=== PATIENT | female | born 1955 | race Two or more races ===

== ENCOUNTER 2019-11-14 14:28 | Emergency (ER) | payer MEDICAID ==
[~2019-11-14] VITALS: Ht 160 cm; Wt 51.3 kg
[2019-11-14] MEDS ORDERED: ACETAMINOPHEN/CODEINE#3 (300/30mg) TAB PO ONE (19:15)
[2019-11-14] MEDS ORDERED: DexAMETHasone SOD PHOS 10MG/1ML VIAL INJ IM ONE (19:15)
[2019-11-14 20:22] VITALS: BP 167/87
== END 2019-11-14 20:22 | disposition home or self-care (01) ==
LOC: ER 14:28
DX: J06.9 Acute upper respiratory infection, unspecified (principal); I10 Essential (primary) hypertension; E78.5 Hyperlipidemia, unspecified; Z88.0 Allergy status to penicillin; Z88.6 Allergy status to analgesic agent
CPT/HCPCS: 96372; 99283; J1100

== ENCOUNTER 2020-04-14 21:46 | Emergency (ER) | payer SELFPAY ==
[~2020-04-14] VITALS: Ht 152.4 cm; Wt 63.5 kg
[2020-04-15 00:06] LABS: Urine Bacteria FEW /hpf (None Seen); Urine Blood Negative /uL (Negative); Urine Specific Gravity 1.009 (1.001-1.035); Urine WBC 2 /hpf (0 - 5)
[2020-04-15 00:21] LABS: Basophils # (auto) 0.1 10 ^3/uL (0-0.2); Eosinophils # (auto) 0.1 10 ^3/uL (0-0.8); Hemoglobin 11.1 g/dL (12.2-16.2); Lymphocytes # (auto) 2.1 10 ^3/uL (0.4-5.4); Monocytes # (auto) 0.4 10 ^3/uL (0-1.3)
[2020-04-15 00:23] LABS: Basophils % (auto) 0.8 % (0.0-2.0); Hematocrit 35.7 % (36.0-46.0); Lymphocytes % (auto) 31.8 % (10.0-50.0); Mean Corpuscular Hemoglobin 20.7 pg (28.0-32.0); Mean Corpuscular Volume 66.8 fL (80.0-100.0); Monocytes % (auto) 5.5 % (0.0-12.0); Neutrophils # (auto) 3.9 10 ^3/uL (1.6-8.6); Neutrophils % (auto) 59.9 % (37.0-80.0); Nucleated Red Blood Cells % 0.1 %; Platelet Count (auto) 314 10^3/uL (140-450); Red Blood Cells 5.34 10^6/uL (4.0-5.20); Red Cell Distribution Width 19.1 % (11.8-14.3); White Blood Cell 6.6 10^3/uL (4.4-10.8)
[2020-04-15 00:38] LABS: Alanine Aminotransferase 18 U/L (13-56); Albumin 3.6 g/dL (3.4-5.0); Amylase 67 U/L (25-115); Anion Gap 7 (5-15); Aspartate Aminotransferase 14 U/L (15-37); BUN/Creatinine Ratio 17.2; Blood Urea Nitrogen 10 mg/dL (7-18); Calcium 8.3 mg/dL (8.5-10.1); Carbon Dioxide 25 mmol/L (21-32); Chloride 108 mmol/L (98-107); GFR African American 134 mL/min; GFR Non-African American 111 mL/min; Glucose 117 mg/dL (74-106); Lipase 156 U/L (73-393); Magnesium 2.4 mg/dL (1.6-2.6); Potassium 3.6 mmol/L (3.5-5.1); Sodium 140 mmol/L (136-145)
[2020-04-15 00:45] LABS: Alkaline Phosphatase 90 U/L (45-117); Bilirubin, Total 0.4 mg/dL (0.2-1.0); Total Protein 7.7 g/dL (6.4-8.2)
[2020-04-15] MEDS ORDERED: FAMOTIDINE 20 MG TAB PO ONE (01:00)
[2020-04-15] MEDS ORDERED: ONDANSETRON ODT 4 MG TAB PO ONE (01:00)
[2020-04-15 01:10] VITALS: BP 152/89
== END 2020-04-15 02:31 | disposition home or self-care (01) ==
LOC: ER 21:47
DX: K29.70 Gastritis, unspecified, without bleeding (principal); N20.0 Calculus of kidney; N83.8 Other noninflammatory disorders of ovary, fallopian tube and broad ligament; D64.9 Anemia, unspecified; K42.9 Umbilical hernia without obstruction or gangrene; R03.0 Elevated blood-pressure reading, without diagnosis of hypertension; K57.30 Diverticulosis of large intestine without perforation or abscess without bleeding; I70.90 Unspecified atherosclerosis; M47.9 Spondylosis, unspecified; F41.9 Anxiety disorder, unspecified
CPT/HCPCS: 36415; 71045; 74176; 80053; 81001; 82150; 83690; 83735; 84484; 85025; 93005; Q0162

== ENCOUNTER 2021-06-27 08:07 | Emergency (ER) | payer MEDICAID ==
[~2021-06-27] VITALS: Ht 134.6 cm; Wt 47.8 kg
[2021-06-27 08:27] VITALS: BP 151/75
[2021-06-27 08:50] LABS: Eosinophils # (auto) 0.1 10 ^3/uL (0-0.8); Eosinophils % (auto) 1.8 % (0.0-7.0); Monocytes # (auto) 0.3 10 ^3/uL (0-1.3)
[2021-06-27 08:52] LABS: Basophils # (auto) 0.1 10 ^3/uL (0-0.2); Basophils % (auto) 0.9 % (0.0-2.0); Hematocrit 34.4 % (36.0-46.0); Hemoglobin 10.7 g/dL (12.2-16.2); Lymphocytes # (auto) 1.9 10 ^3/uL (0.4-5.4); Lymphocytes % (auto) 28.4 % (10.0-50.0); Mean Corpuscular Hemoglobin 20.5 pg (28.0-32.0); Mean Corpuscular Hgb Conc. 31.1 g/dL (32.0-36.0); Mean Corpuscular Volume 65.8 fL (80.0-100.0); Monocytes % (auto) 4.6 % (0.0-12.0); Neutrophils # (auto) 4.4 10 ^3/uL (1.6-8.6); Neutrophils % (auto) 64.3 % (37.0-80.0); Nucleated Red Blood Cells % 0.1 %; Red Blood Cells 5.23 10^6/uL (4.0-5.20); White Blood Cell 6.8 10^3/uL (4.4-10.8)
[2021-06-27 08:55] LABS: Red Cell Distribution Width 20.8 % (11.8-14.3)
[2021-06-27 09:08] LABS: Albumin 3.5 g/dL (3.4-5.0); BUN/Creatinine Ratio 23.1; Calcium 9.1 mg/dL (8.5-10.1); Potassium 3.9 mmol/L (3.5-5.1)
[2021-06-27 09:11] LABS: Bilirubin, Total 0.3 mg/dL (0.2-1.0); Total Protein 7.5 g/dL (6.4-8.2)
== END 2021-06-27 09:35 | disposition home or self-care (01) ==
LOC: ER 08:07
DX: M79.605 Pain in left leg (principal); M79.604 Pain in right leg; D64.9 Anemia, unspecified; F41.9 Anxiety disorder, unspecified; I10 Essential (primary) hypertension; E78.5 Hyperlipidemia, unspecified; Z88.0 Allergy status to penicillin; Z88.5 Allergy status to narcotic agent
CPT/HCPCS: 36415; 80053; 85025

== ENCOUNTER 2022-04-07 08:37 | Emergency (ER) | payer MEDICARE, MEDICAID ==
[~2022-04-07] VITALS: Ht 149.9 cm; Wt 48.1 kg
[2022-04-07] MEDS ORDERED: ACETAMINOPHEN 325 MG TAB PO ONE (09:45)
[2022-04-07 09:55] LABS: Basophils # (auto) 0 10 ^3/uL (0-0.2); Eosinophils # (auto) 0.2 10 ^3/uL (0-0.8); Lymphocytes # (auto) 0.4 10 ^3/uL (0.4-5.4); Neutrophils # (auto) 6.3 10 ^3/uL (1.6-8.6)
[2022-04-07 09:58] VITALS: BP 159/80
[2022-04-07 09:58] LABS: Basophils % (auto) 0.3 % (0.0-2.0); Eosinophils % (auto) 2.5 % (0.0-7.0); Hematocrit 31.2 % (36.0-46.0); Hemoglobin 9.3 g/dL (12.2-16.2); Lymphocytes % (auto) 6.2 % (10.0-50.0); Mean Corpuscular Hemoglobin 18.3 pg (28.0-32.0); Mean Corpuscular Hgb Conc. 29.9 g/dL (32.0-36.0); Mean Corpuscular Volume 61.2 fL (80.0-100.0); Monocytes # (auto) 0.3 10 ^3/uL (0-1.3); Monocytes % (auto) 4.2 % (0.0-12.0); Neutrophils % (auto) 86.8 % (37.0-80.0); Red Blood Cells 5.09 10^6/uL (4.0-5.20); Red Cell Distribution Width 20.3 % (11.8-14.3); White Blood Cell 7.2 10^3/uL (4.4-10.8)
[2022-04-07 10:17] LABS: Urine Bacteria NONE SEEN /hpf (None Seen); Urine Blood Negative /uL (Negative); Urine Specific Gravity 1.016 (1.001-1.035); Urine WBC <1 /hpf (0 - 5)
[2022-04-07 10:20] LABS: Albumin 3.7 g/dL (3.4-5.0); Calcium 8.4 mg/dL (8.5-10.1); Potassium 3.3 mmol/L (3.5-5.1)
[2022-04-07 10:23] LABS: BUN/Creatinine Ratio 21.4; Bilirubin, Total 0.4 mg/dL (0.2-1.0); Total Protein 7.6 g/dL (6.4-8.2)
[2022-04-07] MEDS ORDERED: FER325T PO (10:41)
[2022-04-07] MEDS ORDERED: MELO7.5T9 PO (10:41)
[2022-04-07] MEDS ORDERED: AZIT250T8 PO (10:41)
== END 2022-04-07 10:55 | disposition home or self-care (01) ==
LOC: ER 08:37
DX: U07.1 COVID-19 (principal); J03.90 Acute tonsillitis, unspecified; D64.9 Anemia, unspecified; M17.11 Unilateral primary osteoarthritis, right knee; I10 Essential (primary) hypertension; E78.5 Hyperlipidemia, unspecified; Z79.2 Long term (current) use of antibiotics; Z79.899 Other long term (current) drug therapy; Z88.0 Allergy status to penicillin; Z88.5 Allergy status to narcotic agent
CPT/HCPCS: 36415; 71046; 73562; 80053; 81001; 84484; 85025; 93005

== ENCOUNTER 2025-06-18 17:20 | Inpatient (IN) | payer MEDICARE, MEDICAID ==
[~2025-06-18] VITALS: Ht 152.4 cm; Wt 49.5 kg
[~2025-06-18 17:20] MED LIST: AZIT-185 PO; FER325T PO; MELO7.5T9 PO
--- NOTE | 2025-06-18 17:45 | ED.PDOC ---
History of Present Illness HPI Comments HPI: 69F BIBA w/ the c/c of generalized weakness. EMS reports on being called by the pt's family due from the pt having to have weakness for 1 week. Pt was piked up at home and informed EMS that she went to her PCP for which she had her blood drawn and they called her family stating that the pt's Hemoglobin was at 4.5. Denies Any other Symptoms. Patient states having known history of anemia. Past Medical history: Anxiety, Arthritis, Anemia, High Lipids, HTN, Gastritis Past Surgical history: Denies Any Medications: Blood pressure medicine Social History: Denies smoking, ETOH, and drug use. Allergies: Codeine, Penicillins HPI: Poor Historian. REVIEW OF SYSTEMS: CONSTITUTIONAL: Denies acute: fever, diaphoresis, chills, HEAD: Denies acute: headache, photophobia Eyes: Denies acute: Double vision, vision loss, eye pain, eye discharge. EARS: Denies acute: tinnitus, hearing loss, ear discharge, ear pain, THROAT: Denies acute: sore throat, swelling, difficulty swallowing , pain with swallowing, change in voice. NECK: Denies acute: neck pain, neck swelling, stiff neck. HEART: Denies acute : chest pain, palpitations, LUNGS: Denies acute: SOB, wheezing, cough, hemoptysis ABDOMEN: Denies acute: abdominal pain, Nausea, Vomiting, diarrhea, melena , hematemesis, hematochezia SKIN: Denies acute: rash, redness, lesions, itchiness. EXTREMITIES: Denies acute: calf pain, numbness, tingling, weakness, denies pain in extremity. Denies acute: Low back pain. Neuro: Denies acute: focal neurological deficit, motor or sensory focal neurological d eficit, tremors, seizure like activity, confusion, change in mental status, loss of bowel or bladder function, cauda equina like symptoms. : Denies acute: dysuria, hematuria, flank pain, increase in urinary frequency. PSYCH: Denies acute: hallucination, suicidal ideation, homicidal ideation. FEMALE: Denies acute: abnormal vaginal bleeding, foul odor, unusual discharge. PHYSICAL EXAM: General: ---mild-----acute distress, awake and alert. Head: normocephalic, atraumatic. Neck: supple, trachea is midline, no swelling. Throat: Normal phonation. Eyes:, no erythema, no purulent discharge, no proptosis, no icterus. Heart: regular rate, regular rhythm, no significant murmur appreciated. Lungs: no apparent respiratory distress, Able to speak in full sentences. No wheezing, no rhonchi, no crackles. No stridors Clear to auscultation bilaterally. Abdomen: non tender to palpation, non distended, soft, no guarding, no rebound, + bowel sounds. Neuro: Awake, Alert, oriented to name, self, situation, follows commands GCS=15. Speech is normal. Skin: no petechia, no purpura, no cyanosis, non-pale, not jaundice. Lower extremities: --trace bilateral - Pitting edema no deformity, no focal swelling, no calf TTP. Makes eye contact. moves all four extremities. Face: no apparent facial droop. ED COURSE: DISCLAIMER: This medical document was created using an electronic medical record system with voice recognition software and computerized dictation system. Although this document has been carefully reviewed, there might still be some phonetic and t ypographical errors. Occasional wrong-word or "sound-alike" substitutions may have occurred due to the inherent limitations of voice recognition software. These areas are purely typographical due to imperfections of the software programs and do not reflect any compromise in the patient's medical care. Please read the chart carefully and recognize, using context, where these substitutions have occurred. Chief Complaint: General Weakness Time Seen by MD: 17:45 Primary Care Provider: JUAN A Reviewed Notes: Nurses Notes, Medications, Allergies Allergies: Coded Allergies: Codeine (Verified Allergy, Unknown, 08/31/15) Penicillins (Verified Allergy, Unknown, 08/31/15) Home Meds Active Scripts Ferrous Sulfate (FERROUS SULFATE) 325 Mg Tb, 1 TAB PO DAILY, #30 TAB 0 Refills Prov:SAMUEL CAI 04/07/22 Meloxicam (Mobic) 7.5 Mg Tab, 7.5 MG PO BID, #30 TAB Prov:SAMUEL CAI 04/07/22 Azithromycin (ZITHROMAX TABLET) 250 Mg Tb, 250 MG PO DAILY, #6 TAB Prov:SAMUEL CAI 04/07/22 Information Source: Patient Mode of Arrival: EMS Severity: Moderate Past Medical History PAST MEDICAL HISTORY: Anemia, Anxiety, Arthritis, High Lipids, HTN Past Medical History (Other): Gastritis Surgical History: Denies all surgeries PLANT CULTURE MANAGER History: No Pertinent PLANT CULTURE MANAGER History Family History Family History: Reviewed,noncontributory to illness, Unknown, Family hx of HTN Social History Smoker: Non-Smoker Alcohol: Denies ETOH Use Drugs: Denies Drug Use Lives In: Home Was a procedure done? Was a procedure done?: No Differential Dx Considerations may include: Includes but not limited to thyroid disease, encephalopathy, electrolyte abnormality, sepsis, infection, intracranial pathology, drug adverse effects, arrhythmia, kidney insufficiency, ACS, CVA, malignancy, anemia X-Ray, Labs, Meds, VS Vital Signs Date Time Temp Pulse Resp B/P (MAP) Pulse Ox O2 Delivery O2 Flow Rate FiO2 06/18/25 19:00 98.4 90 22 163/67 (99) 98 98.4 06/18/25 17:30 98.8 84 18 174/66 98 98.8 06/18/25 17:25 88 Lab Test 06/18/25 19:58 06/18/25 19:28 06/18/25 19:20 06/18/25 18:30 Range/Units Urine Color Colorless Yellow Urine Clarity Clear Clear Urine pH 6.5 5.0-9.0 Urine Specific [place] 1.006 1.001-1.035 Urine Protein Negative Negative Urine Ketones Negative Negative Urine Blood Negative Negative /uL Urine Nitrite Negative Negative Urine Bilirubin Negative Negative Urine Urobilinogen Normal Negative mg/dL Urine Leukocyte Esterase Negative Negative /uL Urine RBC None seen 0 - 4 /hpf Urine Microscopic WBC 1 0-5 /HPF Urine Squamous Epithelial Cells None seen <5 /hpf Urine Bacteria None seen None Seen /hpf Urine Glucose Normal Normal mg/dL Troponin I High Sensitivity 7 3 L </=34 ng/L Haptoglobin Pending White Blood Count 7.4 4.4-10.8 10^3/uL Red Blood Count 3.43 L 4.0-5.20 10^6/uL Hemoglobin 4.4 *L 12.2-16.2 g/dL Hematocrit 17.1 L 36.0-46.0 % Mean Corpuscular Volume 49.8 L 80.0-100.0 fL Mean Corpuscular Hemoglobin 12.7 L 28.0-32.0 pg Mean Corpuscular Hemoglobin Concent 25.6 L 32.0-36.0 g/dL Red Cell Distribution Width 26.8 H 11.8-14.3 % Platelet Count 660 H 140-450 10^3/uL Mean Platelet Volume 8.3 6.9-10.8 fL Neutrophils (%) (Auto) 62.2 37.0-80.0 % Lymphocytes (%) (Auto) 29.5 10.0-50.0 % Monocytes (%) (Auto) 5.1 0.0-12.0 % Eosinophils (%) (Auto) 1.7 0.0-7.0 % Basophils (%) (Auto) 1.5 0.0-2.0 % Neutrophils # (Auto) 4.6 1.6-8.6 10 ^3/uL Lymphocytes # (Auto) 2.2 0.4-5.4 10 ^3/uL Monocytes # (Auto) 0.4 0-1.3 10 ^3/uL Eosinophils # (Auto) 0.1 0-0.8 10 ^3/uL Basophils # (Auto) 0.1 0-0.2 10 ^3/uL Nucleated Red Blood Cells 0.5 % Platelet Estimate Increa Large Platelets Few Hypochromasia (manual) Marked Poikilocytosis (manual) Moderate Anisocytosis (manual) Moderate Microcytosis Marked Ovalocytes Few Schistocytes Few Reticulocyte Count (auto) 1.82 H 0.5-1.5 % Prothrombin Time 10.1 9.3-11.8 sec Prothrombin Time INR 0.95 0.9-1.15 Activated Partial Thromboplast Time 22.5 L 24.5-34.5 SEC Sodium Level 141 136-145 mmol/L Potassium Level 3.5 3.5-5.1 mmol/L Chloride Level 108 H 98-107 mmol/L Carbon Dioxide Level 23 20-31 mmol/L Anion Gap 10 5-15 Blood Urea Nitrogen 8 L 9-23 mg/dL Creatinine 0.57 0.550-1.02 mg/dL Glomerular Filtration Rate Calc 98 >90 mL/min BUN/Creatinine Ratio 14.0 10.0-20.0 Serum Glucose 108 H 74-106 mg/dL Lactic Acid Level 0.9 0.4-2.0 mmol/L Calcium Level 8.8 8.7-10.4 mg/dL Iron Level 9 L 50-170 ug/dL Total Iron Binding Capacity 462 H 250-425 ug/dL Percent Iron Saturation 1.9 L 15-50 % Ferritin 1.4 L 10-291 ng/mL Total Bilirubin 0.5 0.2-1.0 mg/dL Aspartate Amino Transferase (AST) 14 13-40 U/L Alanine Aminotransferase (ALT) 10 7-40 U/L Alkaline Phosphatase 69 46-116 U/L Lactate Dehydrogenase 218 120-246 U/L B-Type Natriuretic Peptide 173.09 0-100 pg/mL Total Protein 7.2 5.7-8.2 g/dL Albumin 4.6 3.2-4.8 g/dL [place] [id number] Ph: [phone] DIAGNOSTIC IMAGING Diagnostic Imaging Report : [id number] Signed PATIENT: LIZZ OLMOSCCT: [id number] UNIT: [id number] 6 : 1955 LOC: ER ROOM / BED: / AGE / SEX: 69 / F ADM STATUS: REG ER SERVICE 37 ORDERING PHYSICIAN: PRINCE SALES DO PROCEDURE(s): CXRP - CHEST PORTABLE REASON: weak ORDER NUMBER(s): [id number], ACCESSION NUMBER(s): [id number] EXAMINATION: XY CHEST PORTABLE CLINICAL HISTORY: weak COMPARISON: CHEST TWO VIEWS ROUTINE on DOS: 04/07/22, CXR2 on DOS: 04/07/22 FINDINGS: Cardiac silhouette is enlarged. Central vascular redistribution and interstitial prominence. No lobar consolidation is identified. No definite pleural effusion or pneumothorax. Chronic appearing eventration of the right hemidiaphragm. IMPRESSION: Congestive type pattern with interstitial edema/pulmonary vascular congestion. Correlate to exclude atypical infection. ATED BY: CHRIS BASS MD DICTATED DATE/TIME: 06/18/251834 SIGNED BY: CHRIS BASS MD SIGNED DATE/TIME: 06/18/251834 Time of 1ST Reevaluation: 18:15 Reevaluation 1ST: Unchanged Patient Education/Counseling: Diagnosis, Treatment Family Education/Counseling: No Family Present Comments MDM: patient presented with the above HPI.---generalized weakness---workup was initiated. patient was found with the above mentioned diagnosis. the following medications were ordered: please refer to order lists of meds and tests obtained by myself Dr. Sales. Patient ED course and VS have been stabilized. Patient has been reassessed in the ED and remained in a stable condition. Pertinent incidental findings were discussed with the patient and/or family. Patient/family voices understanding and is agreeable with plan. Patient has been observed in the ED adequate length of time to insure improvement/stability. Escalation of care considered: Consideration of escalation to observation or admission Patient was consented for blood transfusion. Patient reported diarrhea. Stool studies were ordered. Chest x-ray suggested possible pulmonary vascular congestion. Lasix was ordered. Patient was ADMITTED to the medicine team for further evaluation and treatment of their presentation. . All the reports of any imaging studies that were ordered by myself were reviewed by myself. SEPSIS Sepsis Screen Date sepsis recognized/suspect: Jun 18, 2025 Time Sepsis recognized/suspect: 1724 Recent Procedure: No On Antibiotic Therapy: No Respiratory Rate >20: No Heart Rate >90: No Temp<36 C (96.8 F) or >38.3 C: No SBP <90 or MAP <65 mmHG: No New Acute Mental Status Change: No Is the patient on CPAP, BIPAP,: No Physician Orders Electrocardigram (06/18/25 17:33) Management Manager (06/18/25 ) Chest Portable (06/18/25 17:38) Type And Screen (06/18/25 17:38) Vital Signs Date Time Temp Pulse Resp B/P (MAP) Pulse Ox O2 Delivery O2 Flow Rate FiO2 06/18/25 19:00 98.4 90 22 163/67 (99) 98 98.4 06/18/25 17:30 98.8 84 18 174/66 98 98.8 06/18/25 17:25 88 Laboratory Tests Test 06/18/25 18:30 Lactic Acid Level 0.9 mmol/L (0.4-2.0) White Blood Count 7.4 10^3/uL (4.4-10.8) Departure 1 Departure Time of Disposition: 19:04 Impression: Primary Impression: Symptomatic anemia Disposition: 09 ADMITTED INPATIENT Admit to: Tele Condition: Guarded Discharged With: Self Critical Care Note Critical Care Time?: Yes (45 min-critical care time only) Heart Score Heart Score: Heart Score Response (Comments) Value History N/A 0 EKG N/A 0 Age N/A 0 Risk Factors N/A 0 Troponin N/A 0 Total 0 I personally scribed for PRINCE SALES DO ([email or web address]) on 06/18/25 at 17:45. Electronically submitted by [employer] ([employer]). I personally scribed for PRINCE SALES DO ([email or web address]) on 06/18/25 at 18:58. Electronically submitted by [employer] ([email or web address]). PRINCE SALES DO Jun 18, 2025 17:45
--- NOTE | 2025-06-18 18:37 | DVH ---
EXAMINATION: XY CHEST PORTABLE CLINICAL HISTORY: weak COMPARISON: CHEST TWO VIEWS ROUTINE on DOS: 04/07/22, CXR2 on DOS: 04/07/22 FINDINGS: Cardiac silhouette is enlarged. Central vascular redistribution and interstitial prominence. No loba r consolidation is identified. No definite pleural effusion or pneumothorax. Chronic appearing eventration of the right hemidiaphragm. IMPRESSION: Congestive type pattern with interstitial edema/pulmonary vascular congestion. Correlate to exclude a typical infection.
[2025-06-18 18:54] LABS: Nucleated Red Blood Cells % 0.5 %
[2025-06-18 18:56] LABS: Hematocrit 17.1 % (36.0-46.0); Mean Corpuscular Hemoglobin 12.7 pg (28.0-32.0); Mean Corpuscular Volume 49.8 fL (80.0-100.0)
[2025-06-18 19:03] LABS: Hemoglobin 4.4 g/dL (12.2-16.2)
[2025-06-18 19:05] LABS: Alanine Aminotransferase 10 U/L (7-40); Albumin 4.6 g/dL (3.2-4.8); Alkaline Phosphatase 69 U/L (46-116); Anion Gap 10 (5-15); BUN/Creatinine Ratio 14.0 (10.0-20.0); Calcium 8.8 mg/dL (8.7-10.4); Carbon Dioxide 23 mmol/L (20-31); Potassium 3.5 mmol/L (3.5-5.1); Sodium 141 mmol/L (136-145); Total Protein 7.2 g/dL (5.7-8.2)
[2025-06-18 19:06] LABS: Bilirubin, Total 0.5 mg/dL (0.2-1.0)
[2025-06-18 19:07] LABS: Blood Urea Nitrogen 8 mg/dL (9-23); Chloride 108 mmol/L (98-107); Glucose 108 mg/dL (74-106)
[2025-06-18 20:02] LABS: Anisocytosis Moderate; Ovalocytes FEW
[2025-06-18] MEDS ORDERED: HYDROcodone-ACET 5/325MG TAB PO PRN (21:00)
[2025-06-18] MEDS ORDERED: NITROGLYCERIN 0.4 MG SL TAB SL PRN (21:00)
[2025-06-18] MEDS ORDERED: MORPHINE SULFATE INJ 2 MG/ml SYRG IV PRN ×2 (21:00)
[2025-06-18] MEDS ORDERED: ONDANSETRON HCL 4 MG/2 ML VIAL IV PRN (21:00)
[2025-06-18 21:05] VITALS: PULSE 100; RESP 16; O2SAT 96
[2025-06-18 21:15] LABS: Urine Protein, UAD Negative (Negative)
[2025-06-18] MEDS: SODIUM CHLORIDE 0.9% 1,000 ML IV ONE (21:20)
[2025-06-18] MEDS: PANTOPRAZOLE 40 MG/10 ML VIAL INJ IV ONE (22:15)
[2025-06-18 22:43] LABS: Iron 9.0 ug/dL (50-170); Total Iron Binding Capacity 462.0 ug/dL (250-425)
[2025-06-18] MEDS: FUROSEMIDE 20 MG/2 ML VIAL IV ONE (22:45)
[2025-06-18 22:48] LABS: INR 0.95 (0.9-1.15); Partial Thromboplastin Time 22.5 SEC (24.5-34.5); Prothrombin Time 10.1 sec (9.3-11.8)
--- NOTE | 2025-06-18 23:23 | ECG ---
[facility] Test Date: 2025-06-18 Test Time: 17:25:20 Pat Name: LIZZ ALBARRAN Department: Room: 0275T A Gender: F Shirring Tender: NIKKO : 1955 Requested By: PRINCE SALES Order Number: [id number] Reading MD: Raf Frazier Measurements Intervals [place] Rate: 88 P: 62 [place]: 139 QRS: 63 QRSD: 96 T: 55 QT: 380 QTc: 460 Interpretive Statements Sinus rhythm Minimal ST depression, diffuse leads Electronically Signed On 06-19-2025 16:45:03 PDT by Raf Frazier Please click the below link to view image of tracing.
[2025-06-18 23:28] LABS: Wright Stain Ready for Review
[2025-06-18 23:55] VITALS: BP 143/60; PULSE 79; RESP 16; RESP 18; TEMP 97.3; TEMP 97.8; O2SAT 100; O2SAT 98
[2025-06-19] VITALS (8 sets, daily range): BP systolic 121–147; BP diastolic 39–62; PULSE 72–81; RESP 17–20; TEMP 97.4–98.6; O2SAT 97–99
[2025-06-19] MEDS: LACTATED RINGER'S 1,000 ML IV SCH (01:30)
[2025-06-19 06:19] LABS: Alanine Aminotransferase 10 U/L (7-40); Albumin 4.4 g/dL (3.2-4.8); Alkaline Phosphatase 62 U/L (46-116); Anion Gap 10 (5-15); BUN/Creatinine Ratio 10.7 (10.0-20.0); Calcium 8.7 mg/dL (8.7-10.4); Carbon Dioxide 26 mmol/L (20-31); Glucose 98 mg/dL (74-106); Sodium 143 mmol/L (136-145); Total Protein 6.8 g/dL (5.7-8.2)
[2025-06-19 06:20] LABS: Bilirubin, Total 0.7 mg/dL (0.2-1.0)
[2025-06-19 06:30] LABS: Blood Urea Nitrogen 6 mg/dL (9-23); Chloride 107 mmol/L (98-107); Potassium 3.2 mmol/L (3.5-5.1)
--- NOTE | 2025-06-19 06:59 | DVHHPRES ---
History of Present Illness Resident Creating Document: CHRISTI RHOADES RESIDENT History of Present Illness Carmen Medina is a 69 year old female with past medical history of Anemia, Anxiety, Arthritis, High Lipids, HTN, gastritis, presented to the ED with chief complaint of generalized weakness. She states that yesterday morning after going to her PCP will they did a blood draw and lab work came back with hemoglobin of 4.5 for which her doctor told her to go to the ED. patient complained of mild nausea, heartburn, and mild shortness of breath yesterday and decreased appetite since 3 months. Patient states that she saw blood in her stool last week but is having regular bowel movements. Patient denies any vomitings, headaches, dizziness, diarrhea, chest pain, palpitations. Surgical history: Denies Family history: Reviewed, Noncontributory Social history: Denies smoking, alcohol use, drug use PCP: Dr. Riojas Review of Systems Constitutional: Yes: Weakness; No: Fever, Chills, Sweats, Malaise, Other Eyes: No: Pain, Vision change, Conjunctivae inflammation, Eyelid inflammation, Other, Redness ENT: No: Ear pain, Ear discharge, Nose pain, Nose discharge, Nose congestion, Mouth pain, Mouth swelling, Throat pain, Throat swelling, Other Respiratory: No: Cough, Dry, Shortness of breath, SOB with excertion, Wheezing, Hemoptysis, Pleuritic Pain, Sputum, Wheezing, Other Cardiovascular: No: Chest Pain, Palpitations, Orthopnea, Paroxysmal Noc. Dyspnea, Edema, Lt Headedness, Other Gastrointestinal: Hematochezia Genitourinary: No Dysuria, No Frequency, No Incontinence, No Hematuria, No Retention, No Other Musculoskeletal: No: other, neck pain, shoulder pain, arm pain, back pain, hand pain, leg pain, foot pain Skin: No: Rash, Lesions, Jaundice, Bruising, Other Neurological: No: Weakness, Numbness, Incoordination, Change in speech, Confusion, Seizures, Other Allergies: Coded Allergies: Codeine (Verified Allergy, Unknown, 08/31/15) Penicillins (Verified Allergy, Unknown, 08/31/15) Medications Current Medications Medications Dose Ordered Sig/Al Route Start Time Stop Time Status Last Admin Dose Admin Acetaminophen 325 mg Q4HP PRN PO 06/18/25 21:00 Acetaminophen/ Hydrocodone Bitart 1 tab Q4HP PRN PO 06/18/25 21:00 Ondansetron HCl 4 mg Q4HP PRN IV 06/18/25 21:00 Morphine Sulfate 2 mg Q4HPRN PRN IV 06/18/25 21:00 Nitroglycerin 0.4 mg Q5MINP PRN SL 06/18/25 21:00 Morphine Sulfate 2 mg Q30M PRN IV 06/18/25 21:00 Iron Sucrose 110 ml @ 110 mls/hr DAILY@1200 IV 06/19/25 12:00 06/23/25 12:59 Pantoprazole Sodium 40 mg BID IV 06/19/25 10:00 Lactated Ringer's 1,000 ml @ 75 mls/hr [id number] IV 06/19/25 01:30 06/19/25 01:30 75 MLS/HR Exam Vital Signs Vital Signs Date Time Temp Pulse Resp B/P (MAP) Pulse Ox O2 Delivery O2 Flow Rate FiO2 06/19/25 05:00 97.5 75 17 121/50 (73) 99 97.5 06/18/25 23:55 Room Air* 0 21 Exam General: Patient alert and oriented in person, place and time. Patient following commands. In no distress HEENT: Normocephalic, atraumatic, moist mucous membranes Respiratory/pulmonary: Clear lungs bilaterally, vesicular murmurs present in almost all lung veliz, no associated crackles or wheezes. Cardiovascular: Normal heart sounds S1 and S2 with no associated murmurs Abdomen: Abdomen nondistended, there is no pain to palpation in any of the abdominal quadrants, no palpable masses. Extremities: There is no peripheral edema present at the lower extremities. Peripheral Pulses: 3+ Radial (R). 3+ Radial (L). 3+ Dorsalis pedis (R). 3+ Dorsalis pedis(L) Skin: No rashes or pruritus, there is no sacral edema present at this time. Neurological: Intact cranial nerves with no focal neurologic deficits Psych, mental status: Normal psych, mental status Labs/Xrays Labs Test 06/19/25 05:20 06/18/25 19:58 06/18/25 19:28 06/18/25 19:20 Range/Units D-Dimer, Quantitative 0.42 0.0-0.49 mg/L FEU Sodium Level 143 136-145 mmol/L Potassium Level 3.2 L 3.5-5.1 mmol/L Chloride Level 107 98-107 mmol/L Carbon Dioxide Level 26 20-31 mmol/L Anion Gap 10 5-15 Blood Urea Nitrogen 6 L 9-23 mg/dL Creatinine 0.56 0.550-1.02 mg/dL Glomerular Filtration Rate Calc 98 >90 mL/min BUN/Creatinine Ratio 10.7 10.0-20.0 Serum Glucose 98 74-106 mg/dL Calcium Level 8.7 8.7-10.4 mg/dL Total Bilirubin 0.7 0.2-1.0 mg/dL Aspartate Amino Transferase (AST) 13 13-40 U/L Alanine Aminotransferase (ALT) 10 7-40 U/L Alkaline Phosphatase 62 46-116 U/L Total Protein 6.8 5.7-8.2 g/dL Albumin 4.4 3.2-4.8 g/dL Thyroid Stimulating Hormone (TSH) 2.17 0.55-4.78 uIU/mL Urine Color Colorless Yellow Urine Clarity Clear Clear Urine pH 6.5 5.0-9.0 Urine Specific [place] 1.006 1.001-1.035 Urine Protein Negative Negative Urine Ketones Negative Negative Urine Blood Negative Negative /uL Urine Nitrite Negative Negative Urine Bilirubin Negative Negative Urine Urobilinogen Normal Negative mg/dL Urine Leukocyte Esterase Negative Negative /uL Urine RBC None seen 0 - 4 /hpf Urine Microscopic WBC 1 0-5 /HPF Urine Squamous Epithelial Cells None seen <5 /hpf Urine Bacteria None seen None Seen /hpf Urine Glucose Normal Normal mg/dL Troponin I High Sensitivity 7 </=34 ng/L Test 06/18/25 18:30 Range/Units Eosinophils (%) (Auto) 1.7 0.0-7.0 % Eosinophils # (Auto) 0.1 0-0.8 10 ^3/uL Basophils # (Auto) 0.1 0-0.2 10 ^3/uL Nucleated Red Blood Cells 0.5 % Platelet Estimate Increa Large Platelets Few Hypochromasia (manual) Marked Poikilocytosis (manual) Moderate Anisocytosis (manual) Moderate Microcytosis Marked Ovalocytes Few Schistocytes Few Reticulocyte Count (auto) 1.82 H 0.5-1.5 % Prothrombin Time 10.1 9.3-11.8 sec Prothrombin Time INR 0.95 0.9-1.15 Activated Partial Thromboplast Time 22.5 L 24.5-34.5 SEC Lactic Acid Level 0.9 0.4-2.0 mmol/L Iron Level 9 L 50-170 ug/dL Total Iron Binding Capacity 462 H 250-425 ug/dL Percent Iron Saturation 1.9 L 15-50 % Ferritin 1.4 L 10-291 ng/mL Lactate Dehydrogenase 218 120-246 U/L B-Type Natriuretic Peptide 173.09 0-100 pg/mL SEPSIS Sepsis Screen Date sepsis recognized/suspect: Jun 18, 2025 Time Sepsis recognized/suspect: 1724 Recent Procedure: No On Antibiotic Therapy: No Respiratory Rate >20: No Heart Rate >90: No Temp<36 C (96.8 F) or >38.3 C: No SBP <90 or MAP <65 mmHG: No New Acute Mental Status Change: No Is the patient on CPAP, BIPAP,: No Physician Orders Fibrinogen (06/19/25 01:07) D-Dimer (06/19/25 01:07) * Gi Dvh Submarine Cable Equipment Technician (06/19/25 01:10) Ct Angio Abd Aorta W Run Off (06/19/25 01:12) Lactated Ringer's (06/19/25 01:30) Abg W/ Co-Ox (06/19/25 01:22) Vital Signs Date Time Temp Pulse Resp B/P (MAP) Pulse Ox O2 Delivery O2 Flow Rate FiO2 06/19/25 05:00 97.5 75 17 121/50 (73) 99 97.5 06/18/25 23:55 97.3 79 16 143/60 (87) 100 97.3 06/18/25 23:55 18 98 Room Air* 0 21 06/18/25 23:55 97.8 97.8 Laboratory Tests Test 06/19/25 05:20 White Blood Count Pending Medications Medications Dose Ordered Sig/Al Route Start Time Stop Time Status Last Admin Dose Admin Furosemide 20 mg ONCE ONCE IV 06/18/25 20:00 06/18/25 20:25 DC 06/18/25 22:45 20 MG Lactated Ringer's 1,000 ml @ 75 mls/hr [id number] IV 06/19/25 01:30 06/19/25 01:30 75 MLS/HR Pantoprazole Sodium 40 mg ONCE ONCE IV 06/18/25 22:15 06/18/25 22:43 DC 06/18/25 22:15 40 MG Assessment/Plan Assessment/Plan # acute blood loss anemia # microcytic anemia # severe iron deficiency anemia - ordered to [facility], patient's blood typing is not available and was sent to [facility], Pending - iron panel, ferritin, haptoglobin, LDH ordered - hematology oncology consulted # reactive thrombocytosis # rule out DIC - D-dimer, fibrinogen ordered # rule out GI bleed # rule out intra-abdominal hematoma # Rule out peptic ulcer disease - abdominal CT angio ordered - GI consulted # ? Diaphragmatic paresis on right side # mild atherosclerosis # possible High cardiac output heart failure - patient on telemetry - echo ordered # history of anxiety # history of arthritis # hyperlipidemia: Continue home meds # hypertension # history of gastritis NPO PPI prophylaxis: Pantoprazole 40 mg DVT prophylaxis: Not indicated Goals of care addressed with the patient for more than 27 minutes: Full code status Case discussed with Dr. Cuellar , patient and nurse Plan discussed with: Patient My Orders Orders - CHRISTI RHOADES RESIDENT Procedure Category Date Status Time Admit ADMIT 06/18/25 Transmitted 20:59 Allergies ROGER 06/18/25 In Process 20:59 Code Status CODE 06/18/25 Transmitted 20:59 Acetaminophen Tablet PHA 06/18/25 In Process (Tylenol Tablet) 21:00 Hydrocodone-Acet PHA 06/18/25 In Process 5/325mg Tab ([place] 21:00 Ondansetron Hcl PHA 06/18/25 In Process (Zofran) 21:00 Complete Blood Count LAB 06/19/25 In Process 04:00 Npo (Nothing By DIET 06/19/25 Transmitted Mouth) Diet Breakfast Condition: Serious ROGER 06/18/25 In Process 20:59 Bedrest With Bathroom ROGER 06/18/25 In Process Privileg 20:59 Morphine Sulfate PHA 06/18/25 In Process Injection 21:00 Nitroglycerin PHA 06/18/25 In Process Sublingual (Ntrostat 21:00 Morphine Sulfate PHA 06/18/25 In Process Injection 21:00 Oxygen By Nasal RT 06/18/25 Transmitted Cannula 20:59 Stat Ekg For Chest ROGER 06/18/25 In Process Pain 20:59 Notify Of Changes ROGER 06/18/25 In Process From Base 20:59 Assistant Offset Press Operator For ROGER 06/18/25 In Process 24 Hours 20:59 Emergency Dysrhythmia BANNER 06/18/25 In Process Protocol 20:59 Rhythm Strips Once BANNER 06/18/25 In Process Every Shift 20:59 Date of Service: Jun 19, 2025 Billing Provider: BETHANY CUELLAR MD Common Visit Codes: [id number] INP/OBS CARE (HIGH) Secondary Visit Codes: [id number] CARE PLAN 30 MINUTES CHRISTI RHOADES RESIDENT Jun 19, 2025 06:59
[2025-06-19 07:56] LABS: Hematocrit 16.2 % (36.0-46.0); Mean Corpuscular Hemoglobin 12.6 pg (28.0-32.0); Mean Corpuscular Volume 49.0 fL (80.0-100.0); Nucleated Red Blood Cells % 0.6 %
[2025-06-19 08:01] LABS: Hemoglobin 4.2 g/dL (12.2-16.2)
[2025-06-19] MEDS: PANTOPRAZOLE 40 MG/10 ML VIAL INJ IV SCH (10:04)
[2025-06-19] MEDS: IRON SUCROSE COMPLEX 110 ML IV SCH (10:04)
[2025-06-19 10:09] LABS: Fibrinogen 387.0 mg/dL (177-375)
[2025-06-19] MEDS: ACETAMINOPHEN 325 MG TAB PO PRN (14:27)
--- NOTE | 2025-06-19 23:40 | DVHINCON2 ---
Date of service: Jun 19, [address] Patino Reason for Consultation Severe anemia History of Present Illness Carmen Medina is a 69 year old female with past medical history of Anemia, Anxiety, Arthritis, High Lipids, HTN, gastritis, presented to the ED with chief complaint of generalized weakness. She states that yesterday morning after going to her PCP will they did a blood draw and lab work came back with hemoglobin of 4.5 for which her doctor told her to go to the ED. patient complained of mild nausea, heartburn, and mild shortness of breath yesterday and decreased appetite since 3 months. Patient states that she saw blood in her stool last week but is having regular bowel movements. Patient has not had any prior endoscopy or colonoscopy and stated she did not want these at this time. Patient was also tired of being asked the same questions again. She denies use of aspirin or NSAIDs Past Medical History Hypertension Anemia Ovarian cyst Family History: Patient reports no known family medical history. Allergies: Coded Allergies: Codeine (Verified Allergy, Unknown, 08/31/15) Penicillins (Verified Allergy, Unknown, 08/31/15) Home Meds Active Scripts Ferrous Sulfate (FERROUS SULFATE) 325 Mg Tb, 1 TAB PO DAILY, #30 TAB 0 Refills Prov:SAMUEL CAI 04/07/22 Meloxicam (Mobic) 7.5 Mg Tab, 7.5 MG PO BID, #30 TAB Prov:SAMUEL CAI 04/07/22 Azithromycin (ZITHROMAX TABLET) 250 Mg Tb, 250 MG PO DAILY, #6 TAB Prov:SAMUEL CAI 04/07/22 Current Medications Current Medications Medications (Trade) Dose Ordered Sig/Al Route PRN Reason Start Time Stop Time Status Last Admin Iron Sucrose 110 ml @ 110 mls/hr DAILY@1200 IV 06/19/25 12:00 06/23/25 12:59 06/19/25 10:04 Pantoprazole Sodium (Protonix) 40 mg BID IV 06/19/25 10:00 06/19/25 21:37 Lactated Ringer's 1,000 ml @ 75 mls/hr [id number] IV 06/19/25 01:30 06/19/25 17:03 Vital Signs Vital Signs Date Time Temp Pulse Resp B/P (MAP) Pulse Ox O2 Delivery O2 Flow Rate FiO2 06/19/25 20:00 Room Air* 0 21 06/19/25 17:58 98.6 74 20 140/48 (78) 98 98.6 Physical Exam General: Patient alert and oriented in person, place and time. Patient following commands. In no distress, mildly anxious HEENT: Normocephalic, atraumatic, moist mucous membranes Respiratory/pulmonary: Clear lungs bilaterally, vesicular murmurs present in almost all lung veliz, no associated crackles or wheezes. Cardiovascular: Normal heart sounds S1 and S2 with no associated murmurs Abdomen: Abdomen nondistended, there is no pain to palpation in any of the abdominal quadrants, no palpable masses. Extremities: There is no peripheral edema present at the lower extremities. Neurological: Intact cranial nerves with no focal neurologic deficits Labs/Diagnostic Data Labs Test 06/19/25 08:45 06/19/25 05:20 06/18/25 19:58 06/18/25 19:28 Range/Units Stool for White Cells Rare White Blood Count 5.2 # 4.4-10.8 10^3/uL Red Blood Count 3.30 L 4.0-5.20 10^6/uL Hemoglobin 4.2 *L 12.2-16.2 g/dL Hematocrit 16.2 L 36.0-46.0 % Mean Corpuscular Volume 49.0 L 80.0-100.0 fL Mean Corpuscular Hemoglobin 12.6 L 28.0-32.0 pg Mean Corpuscular Hemoglobin Concent 25.7 L 32.0-36.0 g/dL Red Cell Distribution Width 26.3 H 11.8-14.3 % Platelet Count 597 H 140-450 10^3/uL Mean Platelet Volume 8.5 6.9-10.8 fL Neutrophils (%) (Auto) 52.8 37.0-80.0 % Lymphocytes (%) (Auto) 39.3 10.0-50.0 % Monocytes (%) (Auto) 5.1 0.0-12.0 % Eosinophils (%) (Auto) 1.3 0.0-7.0 % Basophils (%) (Auto) 1.5 0.0-2.0 % Neutrophils # (Auto) 2.7 1.6-8.6 10 ^3/uL Lymphocytes # (Auto) 2.0 0.4-5.4 10 ^3/uL Monocytes # (Auto) 0.3 0-1.3 10 ^3/uL Eosinophils # (Auto) 0.1 0-0.8 10 ^3/uL Basophils # (Auto) 0.1 0-0.2 10 ^3/uL Nucleated Red Blood Cells 0.6 % Fibrinogen 387 H 177-375 mg/dL D-Dimer, Quantitative 0.42 0.0-0.49 mg/L FEU Sodium Level 143 136-145 mmol/L Potassium Level 3.2 L 3.5-5.1 mmol/L Chloride Level 107 98-107 mmol/L Carbon Dioxide Level 26 20-31 mmol/L Anion Gap 10 5-15 Blood Urea Nitrogen 6 L 9-23 mg/dL Creatinine 0.56 0.550-1.02 mg/dL Glomerular Filtration Rate Calc 98 >90 mL/min BUN/Creatinine Ratio 10.7 10.0-20.0 Serum Glucose 98 74-106 mg/dL Calcium Level 8.7 8.7-10.4 mg/dL Total Bilirubin 0.7 0.2-1.0 mg/dL Aspartate Amino Transferase (AST) 13 13-40 U/L Alanine Aminotransferase (ALT) 10 7-40 U/L Alkaline Phosphatase 62 46-116 U/L Total Protein 6.8 5.7-8.2 g/dL Albumin 4.4 3.2-4.8 g/dL Thyroid Stimulating Hormone (TSH) 2.17 0.55-4.78 uIU/mL Urine Color Colorless Yellow Urine Clarity Clear Clear Urine pH 6.5 5.0-9.0 Urine Specific [place] 1.006 1.001-1.035 Urine Protein Negative Negative Urine Ketones Negative Negative Urine Blood Negative Negative /uL Urine Nitrite Negative Negative Urine Bilirubin Negative Negative Urine Urobilinogen Normal Negative mg/dL Urine Leukocyte Esterase Negative Negative /uL Urine RBC None seen 0 - 4 /hpf Urine Microscopic WBC 1 0-5 /HPF Urine Squamous Epithelial Cells None seen <5 /hpf Urine Bacteria None seen None Seen /hpf Urine Glucose Normal Normal mg/dL Troponin I High Sensitivity 7 </=34 ng/L Test 06/18/25 19:20 06/18/25 18:30 Range/Units Platelet Estimate Increa Large Platelets Few Hypochromasia (manual) Marked Poikilocytosis (manual) Moderate Anisocytosis (manual) Moderate Microcytosis Marked Ovalocytes Few Schistocytes Few Reticulocyte Count (auto) 1.82 H 0.5-1.5 % Prothrombin Time 10.1 9.3-11.8 sec Prothrombin Time INR 0.95 0.9-1.15 Activated Partial Thromboplast Time 22.5 L 24.5-34.5 SEC Lactic Acid Level 0.9 0.4-2.0 mmol/L Iron Level 9 L 50-170 ug/dL Total Iron Binding Capacity 462 H 250-425 ug/dL Percent Iron Saturation 1.9 L 15-50 % Ferritin 1.4 L 10-291 ng/mL Lactate Dehydrogenase 218 120-246 U/L B-Type Natriuretic Peptide 173.09 0-100 pg/mL Problems(with codes): (1) Anemia (2) Symptomatic anemia (3) Lab test positive for detection of COVID-19 virus (4) Anxiety Plan/Recommendation Plan Patient has been started on IV iron Transfuse 3 units PRBC Check stool for occult blood, iron panel, vitamin B12 level, folate COVID protocol management I will follow up patient with you Elective panendoscopy once medically stabilized Plan discussed with: Patient KELLY CALLE MD Jun 19, 2025 23:40
[2025-06-20] VITALS (13 sets, daily range): BP systolic 107–141; BP diastolic 38–62; PULSE 66–92; RESP 14–20; TEMP 97.8–98.4; O2SAT 97–100
[2025-06-20 06:58] LABS: Mean Corpuscular Volume 49.8 fL (80.0-100.0)
[2025-06-20 07:01] LABS: Hematocrit 15.7 % (36.0-46.0); Mean Corpuscular Hemoglobin 12.7 pg (28.0-32.0)
[2025-06-20 07:06] LABS: Iron 85.0 ug/dL (50-170)
[2025-06-20 07:09] LABS: Total Iron Binding Capacity 390.0 ug/dL (250-425)
[2025-06-20 07:13] LABS: Albumin 3.8 g/dL (3.2-4.8); Alkaline Phosphatase 55 U/L (46-116); Anion Gap 10 (5-15); Carbon Dioxide 25 mmol/L (20-31); Glucose 81 mg/dL (74-106); Potassium 3.6 mmol/L (3.5-5.1); Sodium 144 mmol/L (136-145); Total Protein 6.2 g/dL (5.7-8.2)
[2025-06-20 07:14] LABS: Bilirubin, Total 0.6 mg/dL (0.2-1.0)
[2025-06-20 07:18] LABS: Hemoglobin 4.0 g/dL (12.2-16.2)
[2025-06-20 07:32] LABS: Alanine Aminotransferase < 9 U/L (7-40); BUN/Creatinine Ratio 10.4 (10.0-20.0); Blood Urea Nitrogen < 5 mg/dL (9-23); Calcium 8.6 mg/dL (8.7-10.4); Chloride 109 mmol/L (98-107)
[2025-06-20 08:26] LABS: Anisocytosis Slight; Total Cells Counted 100.0 (100)
--- NOTE | 2025-06-20 11:20 | DVHPN2 ---
Subjective The patient is seen and examined at bedside. The patient is very pale and weak. The patient is receiving blood transfusions right now. Reviewed: Care Plan, H&P, Labs, Medications, Previous Orders, Radiology Changes from previous H/P or p: No Changes Eyes: No Pain, No Vision change, No Conjunctivae inflammation, No Eyelid inflammation, No Other, No Redness ENT: No Ear pain, No Ear discharge, No Nose pain, No Nose discharge, No Nose congestion, No Mouth pain, No Mouth swelling, No Throat pain, No Throat swelling, No Other Cardiovascular: No Chest Pain, No Palpitations, No Orthopnea, No Paroxysmal Noc. Dyspnea, No Edema, No Lt Headedness, No Other Respiratory: No Cough, No Dry, No Shortness of breath, No SOB with excertion, No Wheezing, No Hemoptysis, No Pleuritic Pain, No Sputum, No Other Gastrointestinal: Hematochezia Genitourinary: No Dysuria, No Frequency, No Incontinence, No Hematuria, No Retention, No Other Musculoskeletal: No other, No neck pain, No shoulder pain, No arm pain, No back pain, No hand pain, No leg pain, No foot pain Skin: No Rash, No Lesions, No Jaundice, No Bruising, No Other Objective Vitals Vital Signs Date Time Temp Pulse Resp B/P (MAP) Pulse Ox O2 Delivery O2 Flow Rate FiO2 06/20/25 09:20 98.2 83 16 141/62 98.2 06/20/25 08:44 97 06/20/25 08:00 Room Air* 0 21 Intake/Output Intake and Output 06/20/25 07:00 Intake Total 1811 ml Balance 1811 ml Intake Oral 820 ml IV Total 991 ml # Voids 8 # Bowel Movements 1 General Appearance: Alert, Oriented X3, Cooperative, No acute distress HEENT: Atraumatic, PERRLA, EOMI, Mucous membr. moist/pink Neck: Supple Lungs: Clear to auscultation, Normal air movement Cardiovascular: Regular rate, Normal S1, Normal S2, No murmurs, Gallops, Rubs Abdomen: Normal bowel sounds, Soft, No tenderness Neuro: Cranial nerves 3-12 NL Psych/Mental Status: Mental status NL Medications Current Medications Medications Dose Ordered Sig/Al Route Start Time Stop Time Status Last Admin Dose Admin Acetaminophen 325 mg Q4HP PRN PO 06/18/25 21:00 06/19/25 14:27 325 MG Acetaminophen/ Hydrocodone Bitart 1 tab Q4HP PRN PO 06/18/25 21:00 Ondansetron HCl 4 mg Q4HP PRN IV 06/18/25 21:00 Morphine Sulfate 2 mg Q4HPRN PRN IV 06/18/25 21:00 Nitroglycerin 0.4 mg Q5MINP PRN SL 06/18/25 21:00 Morphine Sulfate 2 mg Q30M PRN IV 06/18/25 21:00 Iron Sucrose 110 ml @ 110 mls/hr DAILY@1200 IV 06/19/25 12:00 06/23/25 12:59 06/19/25 10:04 110 MLS/HR Pantoprazole Sodium 40 mg BID IV 06/19/25 10:00 06/19/25 21:37 40 MG Lactated Ringer's 1,000 ml @ 75 mls/hr [id number] IV 06/19/25 01:30 06/20/25 04:10 75 MLS/HR Laboratory Results Laboratory Tests 06/20/25 05:37 Chemistry Test 06/20/25 05:37 Albumin 3.8 g/dL (3.2-4.8) Calcium Level 8.6 mg/dL (8.7-10.4) L Total Protein 6.2 g/dL (5.7-8.2) LFT Test 06/20/25 05:37 Alanine Aminotransferase (ALT) < 9 U/L (7-40) Alkaline Phosphatase 55 U/L (46-116) Aspartate Amino Transferase (AST) 13 U/L (13-40) Total Bilirubin 0.6 mg/dL (0.2-1.0) Urinalysis Test 06/18/25 19:58 Urine Color Colorless (Yellow) Urine Clarity Clear (Clear) Urine pH 6.5 (5.0-9.0) Urine Specific [place] 1.006 (1.001-1.035) Urine Protein Negative (Negative) Urine Ketones Negative (Negative) Urine Blood Negative /uL (Negative) Urine Nitrite Negative (Negative) Urine Bilirubin Negative (Negative) Urine Urobilinogen Normal mg/dL (Negative) Urine Leukocyte Esterase Negative /uL (Negative) Urine RBC None seen /hpf (0 - 4) Urine Microscopic WBC 1 /HPF (0-5) Urine Squamous Epithelial Cells None seen /hpf (<5) Urine Bacteria None seen /hpf (None Seen) Urine Glucose Normal mg/dL (Normal) Labs and/or images reviewed: Labs reviewed by me Assessment/Plan Assessment/Plan # acute blood loss anemia # microcytic anemia # severe iron deficiency anemia - ordered to PRBC, patient's blood typing is not available and was sent to [facility], Pending - iron panel, ferritin, haptoglobin, LDH ordered - hematology oncology consulted # reactive thrombocytosis # rule out DIC - D-dimer, fibrinogen ordered # rule out GI bleed # rule out intra-abdominal hematoma # acute anemia - GI consulted to rule out GI bleed -continuing blood transfusions with two packed red blood cell for now. We will rechecked after the transfusions in continuing to transfuse if hemoglobin less than seven -IV Protonix -continuing to keep patient NPO # ? Diaphragmatic paresis on right side # mild atherosclerosis # possible High cardiac output heart failure - patient on telemetry - echo ordered # history of anxiety # history of arthritis # hyperlipidemia: Continue home meds # hypertension # history of gastritis This medical document was created using an electronic medical record system with [employer] direct computerized dictation system. Although this document has been carefully reviewed, there may still be some phonetic and typographical errors. These areas are purely typographical due to imperfections of the software programs, and do not reflect any compromise in the patient's medical care. Plan discussed with: Patient Date of Service: Jun 20, 2025 Billing Provider: CLAUDETTE EATON MD Common Visit Codes: [id number] INP/OBS CARE(HIGH) CLAUDETTE EATON MD Jun 20, 2025 11:20
[2025-06-20 15:48] LABS: Hematocrit 25.7 % (36.0-46.0); Hemoglobin 7.4 g/dL (12.2-16.2)
--- NOTE | 2025-06-20 22:18 | DVHPN2 ---
Progress Note - Dictate Date Seen: Jun 20, 2025 Medical Necessity Reason Pt with a Central, PICC or Fol: No Subjective Hemoglobin this morning was 4.0. Patient was S/P 1 unit PRBC receiving her 2nd unit PRBC Patient's daughter is at bedside, daughter stated that she has a history of thalassemia as does her sister and they believe it is genetic from our patient She has not seen any prior lot porter or oncologist Patient has not had any prior EGD or colonoscopy vital signs Vital Sign Date Time Temp Pulse Resp B/P (MAP) Pulse Ox O2 Delivery O2 Flow Rate FiO2 06/20/25 19:41 Room Air* 0 21 06/20/25 17:22 98.2 68 20 134/46 (75) 98 98.2 Total Intake and Output 06/19/25 06/19/25 06/20/25 15:00 23:00 07:00 Intake Total 110 ml 1281 ml 420 ml Balance 110 ml 1281 ml 420 ml medications Current Medications Medications Dose Ordered Sig/Al Route Start Time Stop Time Status Last Admin Dose Admin Acetaminophen 325 mg Q4HP PRN PO 06/18/25 21:00 06/19/25 14:27 325 MG Acetaminophen/ Hydrocodone Bitart 1 tab Q4HP PRN PO 06/18/25 21:00 Ondansetron HCl 4 mg Q4HP PRN IV 06/18/25 21:00 Morphine Sulfate 2 mg Q4HPRN PRN IV 06/18/25 21:00 Nitroglycerin 0.4 mg Q5MINP PRN SL 06/18/25 21:00 Morphine Sulfate 2 mg Q30M PRN IV 06/18/25 21:00 Iron Sucrose 110 ml @ 110 mls/hr DAILY@1200 IV 06/19/25 12:00 06/23/25 12:59 06/20/25 16:19 110 MLS/HR Pantoprazole Sodium 40 mg BID IV 06/19/25 10:00 06/20/25 21:35 40 MG Lactated Ringer's 1,000 ml @ 75 mls/hr [id number] IV 06/19/25 01:30 06/20/25 04:10 75 MLS/HR objective General: Patient alert and oriented in person, place and time. Patient following commands. In no distress, HEENT: Normocephalic, atraumatic, moist mucous membranes Respiratory/pulmonary: Clear lungs bilaterally, vesicular murmurs present in almost all lung veliz, no associated crackles or wheezes. Cardiovascular: Normal heart sounds S1 and S2 with no associated murmurs Abdomen: Abdomen nondistended, there is no pain to palpation in any of the abdominal quadrants, no palpable masses. Extremities: There is no peripheral edema present at the lower extremities. Neurological: Intact cranial nerves with no focal neurologic deficits laboratory and microbiology Laboratory Tests 06/20/25 15:41 06/20/25 05:37 Test 06/20/25 05:37 Range/Units Serum Glucose 81 74-106 mg/dL Problems(with codes): (1) Symptomatic anemia (2) Anxiety (3) Anemia (4) Degenerative joint disease of right knee (5) Bilateral leg pain Prognosis Assessment and plan There is a high suspicion of possible bone marrow disorder like a thalassemia Patient will need outpatient referral to Hematology Oncology for bone marrow and further evaluation In the meantime I have recommended a complete GI workup I will tentatively plan an endoscopy for her in the next 24-48 hours pending OR availability and then followed by elective screening colonoscopy Advance diet as tolerated Dietary Evaluation Review Comments: 1) Ensure clear 240ml TID 2) advance diet as medically feasible 3) Monitor PO intake, lab values, weight trend, and I/O Expected Outcomes/Goals: To meet >75% estimated needs Fu 2-3 days Plan discussed with: Patient, Daughter, Other (Nurse) KELLY CALLE MD Jun 20, 2025 22:18
[2025-06-21] VITALS (11 sets, daily range): BP systolic 125–173; BP diastolic 50–73; PULSE 56–80; RESP 16–18; TEMP 97.5–98.3; O2SAT 95–99
[2025-06-21 06:53] LABS: Alanine Aminotransferase 10 U/L (7-40); Albumin 4.2 g/dL (3.2-4.8); Alkaline Phosphatase 61 U/L (46-116); Anion Gap 10 (5-15); BUN/Creatinine Ratio 11.5 (10.0-20.0); Calcium 8.8 mg/dL (8.7-10.4); Carbon Dioxide 26 mmol/L (20-31); Glucose 74 mg/dL (74-106); Sodium 143 mmol/L (136-145); Total Protein 6.5 g/dL (5.7-8.2)
[2025-06-21 06:54] LABS: Bilirubin, Total 0.6 mg/dL (0.2-1.0)
[2025-06-21 06:57] LABS: Chloride 107 mmol/L (98-107); Potassium 3.3 mmol/L (3.5-5.1)
[2025-06-21 06:58] LABS: Blood Urea Nitrogen 6 mg/dL (9-23)
[2025-06-21 07:01] LABS: Mean Corpuscular Hemoglobin 18.0 pg (28.0-32.0)
[2025-06-21 07:08] LABS: Hematocrit 27.0 % (36.0-46.0); Hemoglobin 7.7 g/dL (12.2-16.2); Mean Corpuscular Volume 62.9 fL (80.0-100.0); Nucleated Red Blood Cells % 1.9 %
--- NOTE | 2025-06-21 12:43 | DVHPN2 ---
Subjective The patient is seen and examined at bedside. The patient is very pale and weak. Per patient she refused EGD with supposed to be done today. She said she rather have her primary care doctor referred to outpatient GI specialist. Reviewed: Care Plan, H&P, Labs, Medications, Previous Orders, Radiology Changes from previous H/P or p: No Changes Eyes: No Pain, No Vision change, No Conjunctivae inflammation, No Eyelid inflammation, No Other, No Redness ENT: No Ear pain, No Ear discharge, No Nose pain, No Nose discharge, No Nose congestion, No Mouth pain, No Mouth swelling, No Throat pain, No Throat swelling, No Other Cardiovascular: No Chest Pain, No Palpitations, No Orthopnea, No Paroxysmal Noc. Dyspnea, No Edema, No Lt Headedness, No Other Respiratory: No Cough, No Dry, No Shortness of breath, No SOB with excertion, No Wheezing, No Hemoptysis, No Pleuritic Pain, No Sputum, No Other Gastrointestinal: Hematochezia Genitourinary: No Dysuria, No Frequency, No Incontinence, No Hematuria, No Retention, No Other Musculoskeletal: No other, No neck pain, No shoulder pain, No arm pain, No back pain, No hand pain, No leg pain, No foot pain Skin: No Rash, No Lesions, No Jaundice, No Bruising, No Other Objective Vitals Vital Signs Date Time Temp Pulse Resp B/P (MAP) Pulse Ox O2 Delivery O2 Flow Rate FiO2 06/21/25 12:41 98.0 73 16 147/73 (97) 97 98.0 06/21/25 08:05 Room Air* 0 21 Intake/Output Intake and Output 06/21/25 07:00 Intake Total 2155 ml Balance 2155 ml Intake Oral 1070 ml IV Total 485 ml Blood Product 600 ml # Voids 5 General Appearance: Alert, Oriented X3, Cooperative, No acute distress HEENT: Atraumatic, PERRLA, EOMI, Mucous membr. moist/pink Neck: Supple Lungs: Clear to auscultation, Normal air movement Cardiovascular: Regular rate, Normal S1, Normal S2, No murmurs, Gallops, Rubs Abdomen: Normal bowel sounds, Soft, No tenderness Neuro: Cranial nerves 3-12 NL Psych/Mental Status: Mental status NL Medications Current Medications Medications Dose Ordered Sig/Al Route Start Time Stop Time Status Last Admin Dose Admin Acetaminophen 325 mg Q4HP PRN PO 06/18/25 21:00 06/21/25 06:39 325 MG Acetaminophen/ Hydrocodone Bitart 1 tab Q4HP PRN PO 06/18/25 21:00 Ondansetron HCl 4 mg Q4HP PRN IV 06/18/25 21:00 Morphine Sulfate 2 mg Q4HPRN PRN IV 06/18/25 21:00 Nitroglycerin 0.4 mg Q5MINP PRN SL 06/18/25 21:00 Morphine Sulfate 2 mg Q30M PRN IV 06/18/25 21:00 Iron Sucrose 110 ml @ 110 mls/hr DAILY@1200 IV 06/19/25 12:00 06/23/25 12:59 06/21/25 12:28 110 MLS/HR Pantoprazole Sodium 40 mg BID IV 06/19/25 10:00 06/21/25 10:00 40 MG Lactated Ringer's 1,000 ml @ 75 mls/hr [id number] IV 06/19/25 01:30 06/21/25 06:05 75 MLS/HR Laboratory Results Laboratory Tests 06/21/25 04:40 Chemistry Test 06/21/25 04:40 Albumin 4.2 g/dL (3.2-4.8) Calcium Level 8.8 mg/dL (8.7-10.4) Total Protein 6.5 g/dL (5.7-8.2) LFT Test 06/21/25 04:40 Alanine Aminotransferase (ALT) 10 U/L (7-40) Alkaline Phosphatase 61 U/L (46-116) Aspartate Amino Transferase (AST) 13 U/L (13-40) Total Bilirubin 0.6 mg/dL (0.2-1.0) Urinalysis Test 06/18/25 19:58 Urine Color Colorless (Yellow) Urine Clarity Clear (Clear) Urine pH 6.5 (5.0-9.0) Urine Specific [place] 1.006 (1.001-1.035) Urine Protein Negative (Negative) Urine Ketones Negative (Negative) Urine Blood Negative /uL (Negative) Urine Nitrite Negative (Negative) Urine Bilirubin Negative (Negative) Urine Urobilinogen Normal mg/dL (Negative) Urine Leukocyte Esterase Negative /uL (Negative) Urine RBC None seen /hpf (0 - 4) Urine Microscopic WBC 1 /HPF (0-5) Urine Squamous Epithelial Cells None seen /hpf (<5) Urine Bacteria None seen /hpf (None Seen) Urine Glucose Normal mg/dL (Normal) Labs and/or images reviewed: Labs reviewed by me Assessment/Plan Assessment/Plan # acute blood loss anemia # microcytic anemia # severe iron deficiency anemia - ordered to PR[facility], patient's blood typing is not available and was sent to [facility], Pending - iron panel, ferritin, haptoglobin, LDH ordered - hematology oncology consulted # reactive thrombocytosis # rule out DIC - D-dimer, fibrinogen ordered # rule out GI bleed # rule out intra-abdominal hematoma # acute anemia - GI consulted to rule out GI bleed -continuing blood transfusions with two packed red blood cell for now. We will rechecked after the transfusions in continuing to transfuse if hemoglobin less than seven -IV Protonix -continuing to keep patient NPO # ? Diaphragmatic paresis on right side # mild atherosclerosis # possible High cardiac output heart failure - patient on telemetry - echo ordered # history of anxiety # history of arthritis # hyperlipidemia: Continue home meds # hypertension # history of gastritis Continuing current management. I explained to the patient in order for a outpatient primary care physician had her referred to GI specialist by the time she able to see the GI specialist and had procedure done at outpatient is will be 6-8 months. I told the patient that if she agreed to do EGD now in the hospital she can do that to get one worry out of herself. The patient is still hesitant to have EGD done. Discussed with daughter at bedside also she also unable to convince mom to go to EGD today. Hydralazine IV PRN for hypertension uncontrolled This medical document was created using an electronic medical record system with [employer] system. Although this document has been carefully reviewed, there may still be some phonetic and typographical errors. These areas are purely typographical due to imperfections of the software programs, and do not reflect any compromise in the patient's medical care. This medical document was created using an electronic medical record system with [employer] system. Although this document has been carefully reviewed, there may still be some phonetic and typographical errors. These areas are purely typographical due to imperfections of the software programs, and do not reflect any compromise in the patient's medical care. Plan discussed with: Patient, Daughter Date of Service: Jun 21, 2025 Billing Provider: CLAUDETTE EATON MD Common Visit Codes: [id number] INP/OBS CARE(HIGH) CLAUDETTE EATON MD Jun 21, 2025 12:43
[2025-06-21] MEDS: hydrALAZINE HCL 20 MG/ML VL IV ONE (20:02)
--- NOTE | 2025-06-21 21:12 | DVHPN2 ---
Progress Note - Dictate Date Seen: Jun 21, 2025 Medical Necessity Reason Pt with a Central, PICC or Fol: No Subjective Hemoglobin stable at 7.4 and 7.7 S/P 2 units PRBC Patient feels generalized weakness and anxiety Patient's daughter is at bedside, daughter stated that she has a history of thalassemia as does her sister and they believe it is genetic from our patient She has not seen any prior hazardous materials handler or oncologist Patient has not had any prior EGD or colonoscopy vital signs Vital Sign Date Time Temp Pulse Resp B/P (MAP) Pulse Ox O2 Delivery O2 Flow Rate FiO2 06/21/25 20:02 154/70 06/21/25 17:00 97.7 76 16 95 97.7 06/21/25 08:05 Room Air* 0 21 Total Intake and Output 06/20/25 06/20/25 06/21/25 14:59 22:59 06:59 Intake Total 300 ml 1205 ml 650 ml Balance 300 ml 1205 ml 650 ml medications Current Medications Medications Dose Ordered Sig/Al Route Start Time Stop Time Status Last Admin Dose Admin Acetaminophen 325 mg Q4HP PRN PO 06/18/25 21:00 06/21/25 06:39 325 MG Acetaminophen/ Hydrocodone Bitart 1 tab Q4HP PRN PO 06/18/25 21:00 Ondansetron HCl 4 mg Q4HP PRN IV 06/18/25 21:00 Morphine Sulfate 2 mg Q4HPRN PRN IV 06/18/25 21:00 Nitroglycerin 0.4 mg Q5MINP PRN SL 06/18/25 21:00 Morphine Sulfate 2 mg Q30M PRN IV 06/18/25 21:00 Iron Sucrose 110 ml @ 110 mls/hr DAILY@1200 IV 06/19/25 12:00 06/23/25 12:59 06/21/25 12:28 110 MLS/HR Pantoprazole Sodium 40 mg BID IV 06/19/25 10:00 06/21/25 10:00 40 MG Lactated Ringer's 1,000 ml @ 75 mls/hr [id number] IV 06/19/25 01:30 06/21/25 06:05 75 MLS/HR objective General: Patient alert and oriented in person, place and time. Patient following commands. In no distress, HEENT: Normocephalic, atraumatic, moist mucous membranes Respiratory/pulmonary: Clear lungs bilaterally, vesicular murmurs present in almost all lung veliz, no associated crackles or wheezes. Cardiovascular: Normal heart sounds S1 and S2 with no associated murmurs Abdomen: Abdomen nondistended, there is no pain to palpation in any of the abdominal quadrants, no palpable masses. Extremities: There is no peripheral edema present at the lower extremities. Neurological: Intact cranial nerves with no focal neurologic deficits laboratory and microbiology Laboratory Tests 06/21/25 04:40 Test 06/21/25 04:40 Range/Units Serum Glucose 74 74-106 mg/dL Problems(with codes): (1) Degenerative joint disease of right knee (2) Symptomatic anemia (3) Anemia Prognosis Plan Patient was scheduled for an EGD today but this was canceled due to OR availability Resume soft mechanical diet tonight NPO after midnight Reschedule EGD on 06/22/2025 Patient is somewhat anxious and is leaning towards not doing any endoscopic workup at this time ; she has been advised an EGD and colonoscopy All questions answered Outpatient follow up with Hematology for bone marrow evaluation an evaluation for genetic thalassemia trait Dietary Evaluation Review Comments: 1) Ensure clear 240ml TID 2) advance diet as medically feasible 3) Monitor PO intake, lab values, weight trend, and I/O Expected Outcomes/Goals: To meet >75% estimated needs Fu 2-3 days Plan discussed with: Patient, Daughter KELLY CALLE MD Jun 21, 2025 21:12
[2025-06-22 01:00] VITALS: BP 132/55; PULSE 75; RESP 20; TEMP 98.1; O2SAT 97
[2025-06-22 05:00] VITALS: BP 125/56; PULSE 67; RESP 18; TEMP 97.2; O2SAT 98
[2025-06-22 08:00] VITALS: PULSE 72
[2025-06-22 09:00] VITALS: BP 143/51; PULSE 68; RESP 17; TEMP 98.1; O2SAT 97
[2025-06-22] MEDS ORDERED: MIDAZOLAM HCL 5 MG/ML-1ML VIAL ONE (11:00)
[2025-06-22] MEDS ORDERED: FLUMAZENIL 0.1 MG/ML INJ 10ML MDV IV ONE (11:00)
[2025-06-22] MEDS ORDERED: NALOXONE HCL 0.4 MG/ML VIAL ONE (11:00)
[2025-06-22] MEDS ORDERED: SODIUM CHLORIDE LOCK 0 ML ONE (11:00)
[2025-06-22] MEDS ORDERED: diphenhdrAMINE HCL 50 MG/1 ML VL ONE (11:01)
[2025-06-22] MEDS ORDERED: fentaNYL CITRATE 100 MCG/2 ML VL ONE (11:01)
[2025-06-22] MEDS ORDERED: LIDOCAINE VISCOUS 2% 15ML UD ONE (11:12)
--- NOTE | 2025-06-22 11:17 | DVHPN2 ---
Subjective The patient is seen and examined at bedside. The patient is very pale and weak. Per patient she refused EGD with supposed to be done today. She said she rather have her primary care doctor referred to outpatient GI specialist. Reviewed: Care Plan, H&P, Labs, Medications, Previous Orders, Radiology Eyes: No Pain, No Vision change, No Conjunctivae inflammation, No Eyelid inflammation, No Other, No Redness ENT: No Ear pain, No Ear discharge, No Nose pain, No Nose discharge, No Nose congestion, No Mouth pain, No Mouth swelling, No Throat pain, No Throat swelling, No Other Cardiovascular: No Chest Pain, No Palpitations, No Orthopnea, No Paroxysmal Noc. Dyspnea, No Edema, No Lt Headedness, No Other Respiratory: No Cough, No Dry, No Shortness of breath, No SOB with excertion, No Wheezing, No Hemoptysis, No Pleuritic Pain, No Sputum, No Other Gastrointestinal: Hematochezia Genitourinary: No Dysuria, No Frequency, No Incontinence, No Hematuria, No Retention, No Other Musculoskeletal: No other, No neck pain, No shoulder pain, No arm pain, No back pain, No hand pain, No leg pain, No foot pain Skin: No Rash, No Lesions, No Jaundice, No Bruising, No Other Objective Vitals Vital Signs Date Time Temp Pulse Resp B/P (MAP) Pulse Ox O2 Delivery O2 Flow Rate FiO2 06/22/25 09:00 98.1 68 17 143/51 (81) 97 98.1 06/22/25 08:00 Room Air* 0 21 Intake/Output Intake and Output 06/22/25 07:00 Intake Total 900 ml Balance 900 ml Intake Oral 900 ml # Voids 5 # Bowel Movements 2 General Appearance: Alert, Oriented X3, Cooperative, No acute distress HEENT: Atraumatic, PERRLA, EOMI, Mucous membr. moist/pink Neck: Supple Lungs: Clear to auscultation, Normal air movement Cardiovascular: Regular rate, Normal S1, Normal S2, No murmurs, Gallops, Rubs Abdomen: Normal bowel sounds, Soft, No tenderness Neuro: Cranial nerves 3-12 NL Psych/Mental Status: Mental status NL Medications Current Medications Medications Dose Ordered Sig/Al Route Start Time Stop Time Status Last Admin Dose Admin Acetaminophen 325 mg Q4HP PRN PO 06/18/25 21:00 06/21/25 06:39 325 MG Acetaminophen/ Hydrocodone Bitart 1 tab Q4HP PRN PO 06/18/25 21:00 Ondansetron HCl 4 mg Q4HP PRN IV 06/18/25 21:00 Morphine Sulfate 2 mg Q4HPRN PRN IV 06/18/25 21:00 Nitroglycerin 0.4 mg Q5MINP PRN SL 06/18/25 21:00 Morphine Sulfate 2 mg Q30M PRN IV 06/18/25 21:00 Iron Sucrose 110 ml @ 110 mls/hr DAILY@1200 IV 06/19/25 12:00 06/23/25 12:59 06/21/25 12:28 110 MLS/HR Pantoprazole Sodium 40 mg BID IV 06/19/25 10:00 06/21/25 22:33 40 MG Lactated Ringer's 1,000 ml @ 75 mls/hr [id number] IV 06/19/25 01:30 06/22/25 10:27 75 MLS/HR Laboratory Results Laboratory Tests 06/21/25 04:40 Urinalysis Test 06/18/25 19:58 Urine Color Colorless (Yellow) Urine Clarity Clear (Clear) Urine pH 6.5 (5.0-9.0) Urine Specific [place] 1.006 (1.001-1.035) Urine Protein Negative (Negative) Urine Ketones Negative (Negative) Urine Blood Negative /uL (Negative) Urine Nitrite Negative (Negative) Urine Bilirubin Negative (Negative) Urine Urobilinogen Normal mg/dL (Negative) Urine Leukocyte Esterase Negative /uL (Negative) Urine RBC None seen /hpf (0 - 4) Urine Microscopic WBC 1 /HPF (0-5) Urine Squamous Epithelial Cells None seen /hpf (<5) Urine Bacteria None seen /hpf (None Seen) Urine Glucose Normal mg/dL (Normal) Assessment/Plan Assessment/Plan # acute blood loss anemia # microcytic anemia # severe iron deficiency anemia - ordered to [facility], patient's blood typing is not available and was sent to [facility], Pending - iron panel, ferritin, haptoglobin, LDH ordered - hematology oncology consulted # reactive thrombocytosis # rule out DIC - D-dimer, fibrinogen ordered # rule out GI bleed # rule out intra-abdominal hematoma # acute anemia - GI consulted to rule out GI bleed -continuing blood transfusions with two packed red blood cell for now. We will rechecked after the transfusions in continuing to transfuse if hemoglobin less than seven -IV Protonix -continuing to keep patient NPO # ? Diaphragmatic paresis on right side # mild atherosclerosis # possible High cardiac output heart failure - patient on telemetry - echo ordered # history of anxiety # history of arthritis # hyperlipidemia: Continue home meds # hypertension # history of gastritis Continuing current management. I explained to the patient in order for a outpatient primary care physician had her referred to GI specialist by the time she able to see the GI specialist and had procedure done at outpatient is will be 6-8 months. I told the patient that if she agreed to do EGD now in the hospital she can do that to get one worry out of herself. The patient is still hesitant to have EGD done. Discussed with daughter at bedside also she also unable to convince mom to go to EGD today. Hydralazine IV PRN for hypertension uncontrolled This medical document was created using an electronic medical record system with [employer] dictation system. Although this document has been carefully reviewed, there may still be some phonetic and typographical errors. These areas are purely typographical due to imperfections of the software programs, and do not reflect any compromise in the patient's medical care. This medical document was created using an electronic medical record system with [employer] dictation system. Although this document has been carefully reviewed, there may still be some phonetic and typographical errors. These areas are purely typographical due to imperfections of the software programs, and do not reflect any compromise in the patient's medical care. My Orders Orders - CLAUDETTE EATON MD Procedure Category Date Status Time Npo (Nothing By DIET 06/22/25 Transmitted Mouth) Diet Breakfast CLAUDETTE EATON MD Jun 22, 2025 11:17
--- NOTE | 2025-06-22 23:03 | DVHDS2 ---
Discharge Summary Date of Admission Jun 18, 2025 at 20:59 Date of Discharge: Jun 22, 2025 Admitting Diagnosis # acute blood loss anemia # microcytic anemia # severe iron deficiency anemia # reactive thrombocytosis # rule out DIC # rule out GI bleed # rule out intra-abdominal hematoma # acute anemia # ? Diaphragmatic paresis on right side # mild atherosclerosis # possible High cardiac output heart failure # history of anxiety # history of arthritis # hyperlipidemia: Continue home meds # hypertension # history of gastritis Labs/Diagnostic Data: Laboratory Results Test 06/21/25 04:40 06/20/25 05:37 06/19/25 08:45 06/19/25 05:20 White Blood Count 6.6 10^3/uL (4.4-10.8) Red Blood Count 4.29 10^6/uL (4.0-5.20) Hemoglobin 7.7 g/dL (12.2-16.2) Hematocrit 27.0 % (36.0-46.0) Mean Corpuscular Volume 62.9 fL (80.0-100.0) Mean Corpuscular Hemoglobin 18.0 pg (28.0-32.0) Mean Corpuscular Hemoglobin Concent 28.7 g/dL (32.0-36.0) Red Cell Distribution Width 40.2 % (11.8-14.3) Platelet Count 584 10^3/uL (140-450) Mean Platelet Volume 8.3 fL (6.9-10.8) Neutrophils (%) (Auto) 51.2 % (37.0-80.0) Lymphocytes (%) (Auto) 36.7 % (10.0-50.0) Monocytes (%) (Auto) 6.0 % (0.0-12.0) Eosinophils (%) (Auto) 4.1 % (0.0-7.0) Basophils (%) (Auto) 2.0 % (0.0-2.0) Neutrophils # (Auto) 3.4 10 ^3/uL (1.6-8.6) Lymphocytes # (Auto) 2.4 10 ^3/uL (0.4-5.4) Monocytes # (Auto) 0.4 10 ^3/uL (0-1.3) Eosinophils # (Auto) 0.3 10 ^3/uL (0-0.8) Basophils # (Auto) 0.1 10 ^3/uL (0-0.2) Nucleated Red Blood Cells 1.9 % Sodium Level 143 mmol/L (136-145) Potassium Level 3.3 mmol/L (3.5-5.1) Chloride Level 107 mmol/L (98-107) Carbon Dioxide Level 26 mmol/L (20-31) Anion Gap 10 (5-15) Blood Urea Nitrogen 6 mg/dL (9-23) Creatinine 0.52 mg/dL (0.550-1.02) Glomerular Filtration Rate Calc 100 mL/min (>90) BUN/Creatinine Ratio 11.5 (10.0-20.0) Serum Glucose 74 mg/dL (74-106) Calcium Level 8.8 mg/dL (8.7-10.4) Total Bilirubin 0.6 mg/dL (0.2-1.0) Aspartate Amino Transferase (AST) 13 U/L (13-40) Alanine Aminotransferase (ALT) 10 U/L (7-40) Alkaline Phosphatase 61 U/L (46-116) Total Protein 6.5 g/dL (5.7-8.2) Albumin 4.2 g/dL (3.2-4.8) Differential Total Cells Counted 100.0 (100) Neutrophils % (Manual) 68 (37.0-80.0) Band Neutrophils % (Manual) 0 Lymphocytes % (Manual) 31 (10.0-50.0) Monocytes % (Manual) 0 (0-12) Eosinophils % (Manual) 1 (0-7) Basophils % (Manual) 0 (0.0-2.0) Metamyelocytes % (manual) 0 Myelocytes % (Manual) 0 Promyelocytes % (Manual) 0 Blast Cells % (Manual) 0 Reactive Lymphocytes 0 Platelet Estimate Increased Hypochromasia (manual) Marked Anisocytosis (manual) Slight Microcytosis Moderate Iron Level 85 ug/dL (50-170) Total Iron Binding Capacity 390 ug/dL (250-425) Percent Iron Saturation 21.8 % (15-50) Stool for White Cells Rare Fibrinogen 387 mg/dL (177-375) D-Dimer, Quantitative 0.42 mg/L FEU (0.0-0.49) Thyroid Stimulating Hormone (TSH) 2.17 uIU/mL (0.55-4.78) Test 06/18/25 19:58 06/18/25 19:28 06/18/25 19:20 06/18/25 18:30 Urine Color Colorless (Yellow) Urine Clarity Clear (Clear) Urine pH 6.5 (5.0-9.0) Urine Specific [place] 1.006 (1.001-1.035) Urine Protein Negative (Negative) Urine Ketones Negative (Negative) Urine Blood Negative /uL (Negative) Urine Nitrite Negative (Negative) Urine Bilirubin Negative (Negative) Urine Urobilinogen Normal mg/dL (Negative) Urine Leukocyte Esterase Negative /uL (Negative) Urine RBC None seen /hpf (0 - 4) Urine Microscopic WBC 1 /HPF (0-5) Urine Squamous Epithelial Cells None seen /hpf (<5) Urine Bacteria None seen /hpf (None Seen) Urine Glucose Normal mg/dL (Normal) Troponin I High Sensitivity 7 ng/L (</=34) Haptoglobin 204 mg/dL (37-355) Large Platelets Few Poikilocytosis (manual) Moderate Ovalocytes Few Schistocytes Few Reticulocyte Count (auto) 1.82 % (0.5-1.5) Prothrombin Time 10.1 sec (9.3-11.8) Prothrombin Time INR 0.95 (0.9-1.15) Activated Partial Thromboplast Time 22.5 SEC (24.5-34.5) Lactic Acid Level 0.9 mmol/L (0.4-2.0) Ferritin 1.4 ng/mL (10-291) Lactate Dehydrogenase 218 U/L (120-246) B-Type Natriuretic Peptide 173.09 pg/mL (0-100) Other Laboratory Tests 06/21/25 04:40 Brief Hx & Hospital Course: This is a 69 years old female with past medical history of anemia, anxiety, arthritis, hyperlipidemia, hypertension, gastritis came to emergency department because of generalized weakness. The patient went to see her primary care physician and had some blood drawn in the lab. The lab work showed hemoglobin of 4.5 and her doctor instructed her to go to emergency department. The patient denied any headache, blurred vision, chest pain, shortness for breath, denied any bloody bowel movement. Denied any melena. Patient does have lost of appetite for three months and she lost some weight. The patient was admitted. The patient was transfused two packed red blood cell. Her hemoglobin is stable. Patient also received IV iron Venofer. GI specialist see the patient and recommend endoscopy and colonoscopy. The patient adamant refused. She said she wanted to wait until she see her primary care physician and we will refer her to a GI specialist as outpatient. Multiple counseled had been done with her daughter at bedside to explained to the patient that she had acute anemia with possible acute GI bleed. It is dangerous to not have a look inside her stomach and also the fact that she had severe anemia and also weight loss and loss of appetite , however patient is still adamant that she do not want any procedure done in the hospital at 1st she said she will think about it and wanted to do it today however she left against medical advice prior to procedure can be done. The patient and daughter verbally understand and had been explained in length that without further workup we might miss peptic ulcer disease, stomach ulcer, cancer, or even bleeding to however the patient still decided to leave against medical advice. We also explained to her that she needs a Hematology Oncology outpatient consulted to workup for possible severe thalassemia. Physical exam: HEENT: Normocephalic atraumatic pupils equal react to light and accommodation. Extraocular muscles intact, conjunctiva pink, oropharynx moist, no thrush, no exudate. Lymphatic: No lymphadenopathy Cardiovascular exam: S1, S2 was heard. No murmurs, rubs, gallops Lung: Clear on auscultation bilaterally, no wheeze, rale, rhonchi. GI: Abdominal soft, nondistended, nontenderness, positive bowel sounds. Extremity: No crepitus, cyanosis, edema. Pedal pulses present bilateral. Full range of motion. Skin: Normal turgor, no rash. Psych: Alert, oriented x3. Neurology: No focal deficits, cranial nerve II to XII grossly intact. This medical document was created using an electronic medical record system with [employer] direct computerized dictation system. Although this document has been carefully reviewed, there may still be some phonetic and typographical errors. These areas are purely typographical due to imperfections of the software programs, and do not reflect any compromise in the patient's medical care. Condition at Discharge: Critical Final Diagnosis/Problems List # acute blood loss anemia # microcytic anemia # severe iron deficiency anemia # reactive thrombocytosis # rule out DIC # rule out GI bleed # rule out intra-abdominal hematoma # acute anemia # ? Diaphragmatic paresis on right side # mild atherosclerosis # possible High cardiac output heart failure # history of anxiety # history of arthritis # hyperlipidemia: Continue home meds # hypertension # history of gastritis Discharge Disposition: AMA Discharge Instruct/Medications Scheduled Azithromycin (Zithromax Tablet), 250 MG PO DAILY Ferrous Sulfate (Ferrous Sulfate), 1 TAB PO DAILY Meloxicam (Mobic), 7.5 MG PO BID Discharge Statement: "Patient was advised to return to the ER or call 911 if any headaches, dizziness, shortness of breath, chest pain, abdominal pain, bleeding, fevers, or worsening of medical condition. Patient was counseled about treatment plan, medications, possible side effects, patientverbalized understanding. All questions were answered to the best of my ability. This discharge took greater then 30 minutes in planning, reviewing documentation, counseling the patient, and discussing with other team members." ASSESSMENT ASSESSMENT Assessment Date of Service: Jun 22, 2025 Billing Provider: CLAUDETTE EATON MD Common Visit Codes: 57908-YIX/OBS DISCH DAY >30min CLAUDETTE EATON MD Jun 22, 2025 23:03
== END 2025-06-22 11:07 | disposition left against medical advice (07) | DRG 811 ==
LOC: EDUNIT# 17:20 → ER 17:20 → EDBD 17:20 → OVERFLOW 20:59 → TELE-WESTW 22:42
PROVIDERS: ADMIT Internal Medicine; ATTEND Internal Medicine
PROC: 30233N1 Transfusion of Nonautologous Red Blood Cells into Peripheral Vein, Percutaneous Approach (ICD-10-PCS; principal; 2025-06-20)
DX: D62 Acute posthemorrhagic anemia (principal); D65 Disseminated intravascular coagulation [defibrination syndrome]; K92.2 Gastrointestinal hemorrhage, unspecified; S36.92XA Contusion of unspecified intra-abdominal organ, initial encounter; D75.838 Other thrombocytosis; F41.9 Anxiety disorder, unspecified; E78.5 Hyperlipidemia, unspecified; Z53.29 Procedure and treatment not carried out because of patient's decision for other reasons; I70.90 Unspecified atherosclerosis; D56.9 Thalassemia, unspecified; J98.6 Disorders of diaphragm; X58.XXXA Exposure to other specified factors, initial encounter; I50.9 Heart failure, unspecified; I11.0 Hypertensive heart disease with heart failure; Z88.5 Allergy status to narcotic agent; Z88.0 Allergy status to penicillin; Z82.49 Family history of ischemic heart disease and other diseases of the circulatory system; Y93.89 Activity, other specified; Y92.89 Other specified places as the place of occurrence of the external cause; Y99.8 Other external cause status
CPT/HCPCS: 36415; 36600; 71045; 80053; 81001; 82728; 82805; 83010; 83540; 83550; 83605; 83615; 83880; 84443; 84484; 85007; 85014; 85018; 85025; 85027; 85045; 85048; 85379; 85384; 85610; 85730; 86850; 86880; 86885; 86900; 86901; 86905; 86906; 86920; 93005; 96374; 96375; 99291; G0378; J1756; J2250; J2470

== ENCOUNTER 2025-08-24 00:01 | Inpatient (IN) | payer MEDICARE, MEDICAID ==
[~2025-08-24] VITALS: Ht 152.4 cm; Wt 44.6 kg
--- NOTE | 2025-08-24 01:36 | ED.PDOC ---
GI ASSESSMENT HPI Comments 70-year-old, wheelchair-bound female presents with chief complaint of abdominal pain. Significant history for anemia, arthritis, hyperlipidemia, hypertension, and gastritis. Patient reports on 1 month history of pain, which has worsened over the past 2 weeks. She comments on pain being diffused across her entire abdomen but is worse to her mid epigastric area and feeling similar to heartburn that she has had in the past. Patient also reports on having irregular bowel movements for the past 2 weeks and occasional nausea and vomiting, with associated weakness secondary to poor appetite for 1 week. No endorse new foods or medications or lifestyle changes. She denies having any bloody or bilious vo mitus, diarrhea, constipation, urinary problems, or further acute symptoms. Chief Complaint: Abdominal Pain Time Seen by MD: 01:10 Primary Care Provider: JUAN A Kim Notes: Nurses Notes, Medications, Allergies Allergies: Coded Allergies: Codeine (Verified Allergy, Unknown, 08/31/15) Penicillins (Verified Allergy, Unknown, 08/31/15) Home Meds Active Scripts Ferrous Sulfate (FERROUS SULFATE) 325 Mg Tb, 1 TAB PO DAILY, #30 TAB 0 Refills Prov:SAMUEL CAI 04/07/22 Meloxicam (Mobic) 7.5 Mg Tab, 7.5 MG PO BID, #30 TAB Prov:SAMUEL CAI 04/07/22 Azithromycin (ZITHROMAX TABLET) 250 Mg Tb, 250 MG PO DAILY, #6 TAB Prov:SAMUEL CAI 04/07/22 Information Source: Patient Mode of Arrival: Ambulatory Timing: Weeks Duration: Since onset Prehospital treatment: None Past Medical History PAST MEDICAL HISTORY: Anemia (Microcytic and severe iron-deficiency ), Anxiety, Arthritis, High Lipids, HTN Past Medical History (Other): Gastritis Surgical History: Denies all surgeries GAS APPLIANCE ADJUSTER History: No Pertinent GAS APPLIANCE ADJUSTER History Family History Family History: Reviewed,noncontributory to illness, Unknown, Family hx of HTN Social History Smoker: Non-Smoker Alcohol: Denies ETOH Use Drugs: Denies Drug Use Lives In: Home All Other Systems: Reviewed and Negative (Comprehensive review of systems are negative unless otherwise stated in HPI) Physical Exam General Appearance: Moderate Distress, Normal HEENT: Normal ENT Inspection, Pharynx Normal, TMs Normal Neck: Full Range of Motion, Non-Tender, Normal, Normal Inspection Respiratory: Chest Non-Tender, Lungs Clear, No Accessory Muscle Use, No Respiratory Distress, Normal Breath Sounds Cardiovascular: No Edema, No JVD, No Murmur, No Gallop, Normal Peripheral Pulses, Regular Rate/Rhythm Breast Exam: Deferred Gastrointestinal: Diffuse (Tenderness), No Organomegaly, No Pulsatile Mass, Normal Bowel Sounds, Soft, Tenderness (Diffuse abdominal tenderness) Genitalia: Deferred Pelvic: Deferred Rectal: Deferred Extremities: No calf tenderness, Normal capillary refill, Normal inspection, Normal range of motion, Non-tender, No pedal edema Musculoskeletal : Apperance: Normal Neurologic: Alert, derrick follower II-XII nml as Tested, No Motor Deficits, Normal Affect, Normal Mood, No Sensory Deficits Cerebellar Function: Normal Reflexes: Normal Skin: Dry, Normal Color, Warm Lymphatic: No Adenopathy Was a procedure done? Was a procedure done?: No GI differential Dx Differential Diagnosis: Bowel Obstruction, Cholangitis, Cholecystitis, Constipation, Diverticular disease, Gastritis/PUD, Gastroenteritis, Hepatitis, Inflammatory BD, Pancreatitis, UTI, Dehydration, Electrolyte Imbalance, Food Poisoning, Viral X-Ray, Labs, Meds, VS Vital Signs Date Time Temp Pulse Resp B/P (MAP) Pulse Ox O2 Delivery O2 Flow Rate FiO2 08/24/25 00:04 98.0 99 16 173/78 98 98.0 Lab Test 08/24/25 01:47 Range/Units White Blood Count 8.5 4.4-10.8 10^3/uL Red Blood Count 4.46 4.0-5.20 10^6/uL Hemoglobin 10.8 L 12.2-16.2 g/dL Hematocrit 33.2 L 36.0-46.0 % Mean Corpuscular Volume 74.4 L 80.0-100.0 fL Mean Corpuscular Hemoglobin 24.3 L 28.0-32.0 pg Mean Corpuscular Hemoglobin Concent 32.6 32.0-36.0 g/dL Red Cell Distribution Width 23.5 H 11.8-14.3 % Platelet Count 295 140-450 10^3/uL Mean Platelet Volume 8.3 6.9-10.8 fL Neutrophils (%) (Auto) 81.6 H 37.0-80.0 % Lymphocytes (%) (Auto) 11.1 10.0-50.0 % Monocytes (%) (Auto) 5.9 0.0-12.0 % Eosinophils (%) (Auto) 1.1 0.0-7.0 % Basophils (%) (Auto) 0.3 0.0-2.0 % Neutrophils # (Auto) 7.0 1.6-8.6 10 ^3/uL Lymphocytes # (Auto) 0.9 0.4-5.4 10 ^3/uL Monocytes # (Auto) 0.5 0-1.3 10 ^3/uL Eosinophils # (Auto) 0.1 0-0.8 10 ^3/uL Basophils # (Auto) 0 0-0.2 10 ^3/uL Nucleated Red Blood Cells 0.0 % Sodium Level Pending Potassium Level Pending Chloride Level Pending Carbon Dioxide Level Pending Anion Gap Pending Blood Urea Nitrogen Pending Creatinine Pending Glomerular Filtration Rate Calc Pending BUN/Creatinine Ratio Pending Serum Glucose Pending Lactic Acid Level Pending Calcium Level Pending Total Bilirubin Pending Aspartate Amino Transferase (AST) Pending Alanine Aminotransferase (ALT) Pending Alkaline Phosphatase Pending Total Protein Pending Albumin Pending Lipase Pending X-Ray, Labs, Meds, VS Comment Mild anemia noted on lab work CT abdomen and pelvis was negative Due to patient's pain level and decreased appetite with intermittent nausea and vomiting, it is recommended that patient be admitted for further evaluation. Recommend GI consult in the morning Patient be given IV fluids Previous labs and history reviewed by this provider Patient hemodynamically stable Time of 1ST Reevaluation: 01:50 Reevaluation 1ST: Unchanged Patient Education/Counseling: Diagnosis, Treatment Family Education/Counseling: No Family Present SEPSIS Sepsis Screen Date sepsis recognized/suspect: Aug 24, 2025 Time Sepsis recognized/suspect: 0010 Recent Procedure: No On Antibiotic Therapy: No Respiratory Rate >20: No Heart Rate >90: No Temp<36 C (96.8 F) or >38.3 C: No SBP <90 or MAP <65 mmHG: No New Acute Mental Status Change: No Is the patient on CPAP, BIPAP,: No Physician Orders Ct Ab Pel Wo Con-No Oral Or Iv (08/24/25 01:10) Comprehensive Metabolic Panel (08/24/25 01:10) Lipase (08/24/25 01:10) Lactic Acid W/ Reflex Order (08/24/25 01:10) Urinalysis (08/24/25 01:10) Vital Signs Date Time Temp Pulse Resp B/P (MAP) Pulse Ox O2 Delivery O2 Flow Rate FiO2 08/24/25 00:04 98.0 99 16 173/78 98 98.0 Laboratory Tests Test 08/24/25 01:47 Lactic Acid Level Pending White Blood Count 8.5 10^3/uL (4.4-10.8) Departure 1 Departure Time of Disposition: 02:16 Impression: Primary Impression: Gastritis Qualified Codes: K29.00 - Acute gastritis without bleeding Additional Impressions: Abdominal pain Qualified Codes: R10.84 - Generalized abdominal pain Slow transit constipation Disposition: ADMITTED INPATIENT Condition: Stable Critical Care Note Critical Care Time?: No Stability Stability form required: No Heart Score Heart Score: Heart Score Response (Comments) Value History N/A 0 EKG N/A 0 Age N/A 0 Risk Factors N/A 0 Troponin N/A 0 Total 0 I personally scribed for BRITTANY GARAY ([email or web address]) on 08/24/25 at 01:36. Electronically submitted by Otis Rome [email or web address]). BRITTANY GARAY Aug 24, 2025 01:36
--- NOTE | 2025-08-24 01:53 | DVH ---
Exam: CT CT AB PEL WO CON-NO ORAL OR IV History: abd pain Comparison Study: XY CHEST PORTABLE on DOS: 06/18/25, CHEST TWO VIEWS ROUTINE on DOS: 04/07/22, CXR2 on DOS: 04/07/22 Technique: Multidetector spiral CT of the abdomen was performed from lung bases to pubic symphysis. I maging was performed without IV contrast. Axial, coronal and sagittal multiplanar reformats were obta ined from the axial data set by the technologist. Radiation Dose : 1. Abdomen/Pelvis: CTDIvol 4.97 mGy, DLP 240.43 mGy*cm. Findings: Evaluation of solid organs is limited due to lack of intravenous contrast use. Lung Bases: No acute or significant lung base finding. Normal heart size. No pleural or pericardial effusion. Liver: The liver is normal in size. No focal lesions. Gallbladder and Biliary Tree: Unremarkable Spleen: Unremarkable Pancreas: The pancreas is grossly normal in appearance. Adrenal Glands: Unremarkable Kidneys: Kidneys are grossly normal without calculi or hydronephrosis. Bladder: Grossly unremarkable for degree of distention. Bowel: The stomach is grossly normal in appearance. Small bowel and colon are normal in caliber and d istribution. The appendix is not visualized; however, no secondary findings of acute appendicitis thony ntified. Ascites: Absent Lymphadenopathy: No mesenteric, retroperitoneal or periportal lymphadenopathy. Abdominal Wall and Mesentery: Unremarkable. Vasculature: The visualized abdominal aorta is normal in size and caliber. Evaluation of abdominal a nd pelvic vessels is limited due to lack of intravenous contrast. Pelvic Organs: Unremarkable Musculoskeletal: No aggressive focal bony lesions, acute fractures or dislocation. IMPRESSION: No acute abdominal or pelvic findings. Radiation optimization: All CT scans at this facility use at least one of these dose optimization mata hniques: automated exposure control mA and/or kV adjustment per patient size (includes targeted exam s where dose is matched to clinical indication) or iterative reconstruction.
[2025-08-24 01:56] LABS: Nucleated Red Blood Cells % 0.0 %
[2025-08-24 01:58] LABS: Hematocrit 33.2 % (36.0-46.0); Hemoglobin 10.8 g/dL (12.2-16.2); Mean Corpuscular Hemoglobin 24.3 pg (28.0-32.0); Mean Corpuscular Volume 74.4 fL (80.0-100.0)
[2025-08-24 02:14] LABS: Alanine Aminotransferase 10 U/L (7-40); Albumin 4.3 g/dL (3.2-4.8); Alkaline Phosphatase 88 U/L (46-116); Anion Gap 11 (5-15); BUN/Creatinine Ratio 17.0 (10.0-20.0); Bilirubin, Total 0.4 mg/dL (0.2-1.0); Calcium 9.2 mg/dL (8.7-10.4); Carbon Dioxide 25 mmol/L (20-31); Chloride 106 mmol/L (98-107); Lipase 38 U/L (12-53); Sodium 142 mmol/L (136-145); Total Protein 7.4 g/dL (5.7-8.2)
[2025-08-24 02:21] LABS: Blood Urea Nitrogen 9 mg/dL (9-23); Glucose 115 mg/dL (74-106); Potassium 3.2 mmol/L (3.5-5.1)
[2025-08-24] MEDS: SODIUM CHLORIDE 0.9% 1,000 ML IV ONE ×2 (03:30→14:36)
[2025-08-24] MEDS: PANTOPRAZOLE 40 MG/10 ML VIAL INJ IV ONE (03:30)
[2025-08-24] MEDS: ONDANSETRON HCL 4 MG/2 ML VIAL IV ONE (03:30)
[2025-08-24] MEDS: MAALOX PLUS or MAALOX 30 ML PO ONE (03:30)
[2025-08-24 07:17] VITALS: PULSE 81; RESP 15; O2SAT 98
[2025-08-24 07:47] LABS: Urine Protein, UAD TRACE (Negative)
[2025-08-24] MEDS ORDERED: HYDROcodone-ACET 5/325MG TAB PO PRN (08:30)
[2025-08-24] MEDS ORDERED: DOCUSATE SOD 100 MG CAP PO PRN (08:30)
--- NOTE | 2025-08-24 08:35 | DVHHP2 ---
History of Present Illness Reason for Visit: Abdominal pain History of Present Illness Adam Balderrama, Carmen Morton, is a 70-year-old female with past medical history of anemia, arthritis, anxiety, hypertension, thalassemia, and hyperlipidemia, who came to the hospital for abdominal pain. Patient was hospitalized here in 06/18/2025-06/22/2025 for severe anemia with a hemoglobin of 4.5. She had multiple blood transfusions and GI consult. She did not have an endoscopy completed. She came back today due to abdominal pain, bloating, constipation, and loss of appetite. She states this started about 3 days ago. Cardiovascular: HTN, hyperipidemia Heme/Onc: Anemia NOS, Other (thalassemia) Psych: Anxiety Musculoskeletal: Osteoarthritis Past Surgical History: None Smoke: No ALCOHOL: none Drugs: None Lives: with Family Domestic Violence: Neg Review of Systems Constitutional: No: Fever, Chills, Sweats, Weakness, Malaise, Other Eyes: No: Pain, Vision change, Conjunctivae inflammation, Eyelid inflammation, Other, Redness ENT: No: Ear pain, Ear discharge, Nose pain, Nose discharge, Nose congestion, Mouth pain, Mouth swelling, Throat pain, Throat swelling, Other Respiratory: No: Cough, Dry, Shortness of breath, SOB with excertion, Wheezing, Hemoptysis, Pleuritic Pain, Sputum, Wheezing, Other Cardiovascular: No: Chest Pain, Palpitations, Orthopnea, Paroxysmal Noc. Dyspnea, Edema, Lt Headedness, Other Gastrointestinal: Abdominal Pain, Constipation, Other (bloating, loss of appetite); No: Nausea, Vomiting, Diarrhea, Melena, Hematochezia Genitourinary: No Dysuria, No Frequency, No Incontinence, No Hematuria, No Retention, No Other Musculoskeletal: No: other, neck pain, shoulder pain, arm pain, back pain, hand pain, leg pain, foot pain Skin: No: Rash, Lesions, Jaundice, Bruising, Other Neurological: No: Weakness, Numbness, Incoordination, Change in speech, Confusion, Seizures, Other Allergies: Coded Allergies: Codeine (Verified Allergy, Unknown, 08/31/15) Penicillins (Verified Allergy, Unknown, 08/31/15) Exam Vital Signs Vital Signs Date Time Temp Pulse Resp B/P (MAP) Pulse Ox O2 Delivery O2 Flow Rate FiO2 08/24/25 07:17 98.8 81 15 134/72 (92) 98 98.8 08/24/25 07:17 Room Air* 0 21 General Appearance: Alert, Oriented X3, Cooperative, No acute distress HEENT: Atraumatic, PERRLA, Other (Mucous membr dry) Respiratory: Clear to auscultation, Normal air movement Cardiovascular: Regular rate, Normal S1, Normal S2 Abdominal: Normal bowel sounds, Soft, No hepatospenomegaly, Other (abdominal tenderness) Extremities: No clubbing, No cyanosis, No edema, Normal pulses, No tenderness/swelling Skin: No rashes, No breakdown, No significant lesion Neuro: Normal gait, Normal speech, Strength at 5/5 X4 ext, Normal tone, Sensat ion intact Psych/Mental Status: Mental status NL, Mood NL Labs/Xrays Labs Test 08/24/25 05:00 08/24/25 04:05 08/24/25 01:47 Range/Units Urine Color Yellow Yellow Urine Clarity Clear Clear Urine pH 5.5 5.0-9.0 Urine Specific [place] 1.023 1.001-1.035 Urine Protein Trace H Negative Urine Ketones Negative Negative Urine Blood Negative Negative /uL Urine Nitrite Negative Negative Urine Bilirubin Negative Negative Urine Urobilinogen Normal Negative mg/dL Urine Leukocyte Esterase Trace Negative /uL Urine RBC 1 0 - 4 /hpf Urine Microscopic WBC 7 H 0-5 /HPF Urine Squamous Epithelial Cells Few <5 /hpf Urine Bacteria None seen None Seen /hpf Urine Mucus Few None Seen Urine Glucose Normal Normal mg/dL POC Glucose 97 70-106 mg/dl White Blood Count 8.5 4.4-10.8 10^3/uL Red Blood Count 4.46 4.0-5.20 10^6/uL Hemoglobin 10.8 L 12.2-16.2 g/dL Hematocrit 33.2 L 36.0-46.0 % Mean Corpuscular Volume 74.4 L 80.0-100.0 fL Mean Corpuscular Hemoglobin 24.3 L 28.0-32.0 pg Mean Corpuscular Hemoglobin Concent 32.6 32.0-36.0 g/dL Red Cell Distribution Width 23.5 H 11.8-14.3 % Platelet Count 295 140-450 10^3/uL Mean Platelet Volume 8.3 6.9-10.8 fL Neutrophils (%) (Auto) 81.6 H 37.0-80.0 % Lymphocytes (%) (Auto) 11.1 10.0-50.0 % Monocytes (%) (Auto) 5.9 0.0-12.0 % Eosinophils (%) (Auto) 1.1 0.0-7.0 % Basophils (%) (Auto) 0.3 0.0-2.0 % Neutrophils # (Auto) 7.0 1.6-8.6 10 ^3/uL Lymphocytes # (Auto) 0.9 0.4-5.4 10 ^3/uL Monocytes # (Auto) 0.5 0-1.3 10 ^3/uL Eosinophils # (Auto) 0.1 0-0.8 10 ^3/uL Basophils # (Auto) 0 0-0.2 10 ^3/uL Nucleated Red Blood Cells 0.0 % Sodium Level 142 136-145 mmol/L Potassium Level 3.2 L 3.5-5.1 mmol/L Chloride Level 106 98-107 mmol/L Carbon Dioxide Level 25 20-31 mmol/L Anion Gap 11 5-15 Blood Urea Nitrogen 9 9-23 mg/dL Creatinine 0.53 L 0.550-1.02 mg/dL Glomerular Filtration Rate Calc 99 >90 mL/min BUN/Creatinine Ratio 17.0 10.0-20.0 Serum Glucose 115 H 74-106 mg/dL Lactic Acid Level 0.7 0.4-2.0 mmol/L Calcium Level 9.2 8.7-10.4 mg/dL Total Bilirubin 0.4 0.2-1.0 mg/dL Aspartate Amino Transferase (AST) 16 13-40 U/L Alanine Aminotransferase (ALT) 10 7-40 U/L Alkaline Phosphatase 88 46-116 U/L Total Protein 7.4 5.7-8.2 g/dL Albumin 4.3 3.2-4.8 g/dL Lipase 38 12-53 U/L Exam: CT CT AB PEL WO CON-NO ORAL OR IV Findings: Evaluation of solid organs is limited due to lack of intravenous contrast use. Lung Bases: No acute or significant lung base finding. Normal heart size. No pleural or pericardial effusion. Liver: The liver is normal in size. No focal lesions. Gallbladder and Biliary Tree: Unremarkable Spleen: Unremarkable Pancreas: The pancreas is grossly normal in appearance. Adrenal Glands: Unremarkable Kidneys: Kidneys are grossly normal without calculi or hydronephrosis. Bladder: Grossly unremarkable for degree of distention. Bowel: The stomach is grossly normal in appearance. Small bowel and colon are normal in caliber and distribution. The appendix is not visualized; however, no secondary findings of acute appendicitis identified. Ascites: Absent Lymphadenopathy: No mesenteric, retroperitoneal or periportal lymphadenopathy. Abdominal Wall and Mesentery: Unremarkable. Vasculature: The visualized abdominal aorta is normal in size and caliber. E valuation of abdominal and pelvic vessels is limited due to lack of intravenous contrast. Pelvic Organs: Unremarkable Musculoskeletal: No aggressive focal bony lesions, acute fractures or dislocation. IMPRESSION: No acute abdominal or pelvic findings. SEPSIS Sepsis Screen Date sepsis recognized/suspect: Aug 24, 2025 Time Sepsis recognized/suspect: 240 Recent Procedure: No On Antibiotic Therapy: No Respiratory Rate >20: No Heart Rate >90: Yes Temp<36 C (96.8 F) or >38.3 C: No SBP <90 or MAP <65 mmHG: No New Acute Mental Status Change: No Is the patient on CPAP, BIPAP,: No Physician Orders Ct Ab Pel Wo Con-No Oral Or Iv (08/24/25 01:10) Admit (08/24/25 08:28) Code Status (08/24/25 08:28) Hydrocodone-Acet 5/325mg Tab ([place] (08/24/25 08:30) Ondansetron Hcl (Zofran) (08/24/25 08:30) Docusate Sodium Capsule (Colace Capsule) (08/24/25 08:30) Complete Blood Count (08/25/25 04:00) Comprehensive Metabolic Panel (08/25/25 04:00) Cardiac Diet-2gna,Lofat,Lochol (08/24/25 Breakfast) Condition: Serious (08/24/25 08:28) Acetaminophen Tablet (Tylenol Tablet) (08/24/25 08:30) Vital Signs Date Time Temp Pulse Resp B/P (MAP) Pulse Ox O2 Delivery O2 Flow Rate FiO2 08/24/25 07:17 98.8 81 15 134/72 (92) 98 98.8 08/24/25 07:17 81 15 98 Room Air* 0 21 08/24/25 05:00 82 18 151/71 (97) 99 08/24/25 04:00 82 13 151/71 (97) 99 08/24/25 03:00 86 18 136/66 (89) 97 08/24/25 02:41 Room Air* 0 21 08/24/25 02:38 98.2 93 14 170/65 (100) 97 98.2 Laboratory Tests Test 08/24/25 01:47 Lactic Acid Level 0.7 mmol/L (0.4-2.0) White Blood Count 8.5 10^3/uL (4.4-10.8) Medications Medications Dose Ordered Sig/Al Route Start Time Stop Time Status Last Admin Dose Admin Al Hydrox/Mg Hydrox/Simethicone 30 ml ONCE ONCE PO 08/24/25 02:30 08/24/25 02:31 DC 08/24/25 03:30 30 ML Ondansetron HCl 4 mg ONCE ONCE IV 08/24/25 02:30 08/24/25 02:31 DC 08/24/25 03:30 4 MG Pantoprazole Sodium 40 mg ONCE ONCE IV 08/24/25 02:30 08/24/25 02:31 DC 08/24/25 03:30 40 MG Sodium Chloride 1,000 ml @ 1,000 mls/hr Q1H ONCE IV 08/24/25 02:30 08/24/25 03:49 DC 08/24/25 03:30 1,000 MLS/HR Assessment/Plan Assessment/Plan Assessment: Gastritis, Anemia, Hypertension, Hyperlipidemia, Plan: Admit to Med-Surg, Consider GI consult, IV hydration, PRN laxatives, IV antibiotics, Plan discussed with: Patient My Orders Orders - ASHOK URBINA Procedure Category Date Status Time Admit ADMIT 08/24/25 Transmitted 08:28 Code Status CODE 08/24/25 Transmitted 08:28 Hydrocodone-Acet PHA 08/24/25 Transmitted 5/325mg Tab (Hoffmeister 08:30 Ondansetron Hcl PHA 08/24/25 Transmitted (Zofran) 08:30 Docusate Sodium PHA 08/24/25 Transmitted Capsule (Colace 08:30 Complete Blood Count LAB 08/25/25 Verified 04:00 Comprehensive LAB 08/25/25 Verified Metabolic Panel 04:00 Cardiac DIET 08/24/25 Transmitted Diet-2gna,Lofat,Lochol Breakfast Condition: Serious ROGER 08/24/25 Transmitted 08:28 Acetaminophen Tablet PHA 08/24/25 Transmitted (Tylenol Tablet) 08:30 Date of Service: Aug 24, 2025 Billing Provider: ASHOK URBINA Common Visit Codes: [id number] INP/OBS CARE (MOD) ASHOK URBINA Aug 24, 2025 08:35
[2025-08-24 11:36] VITALS: PULSE 76; RESP 18; O2SAT 97
[2025-08-24] MEDS ORDERED: LACTULOSE 20Gm/30ML SOLN PO PRN (12:30)
[2025-08-24 12:40] VITALS: BP 131/73; PULSE 74; RESP 18; TEMP 98.5; O2SAT 98
[2025-08-24] MEDS: DOCUSATE SOD 100 MG CAP PO SCH (14:36)
[2025-08-24] MEDS: POTASSIUM CHL 20 Meq TABLET PO ONE (14:37)
[2025-08-24 16:59] VITALS: BP 132/75; PULSE 75; RESP 18; TEMP 98.3; O2SAT 97
[2025-08-24 20:00] VITALS: PULSE 74; RESP 16; O2SAT 97
[2025-08-24 21:00] VITALS: BP_SYST 117; BP_SYST 132; BP_DIAS 68; BP_DIAS 88; PULSE 74; PULSE 76; RESP 16; TEMP 97.7; TEMP 97.9; O2SAT 100; O2SAT 97
[2025-08-24] MEDS: ACETAMINOPHEN 325 MG TAB PO PRN (22:18)
[2025-08-25 00:59] VITALS: BP 119/70; PULSE 68; RESP 17; TEMP 97.6; O2SAT 99
[2025-08-25 05:00] VITALS: BP 152/87; PULSE 75; RESP 16; TEMP 96.9; O2SAT 99
[2025-08-25 06:26] LABS: Hemoglobin 10.1 g/dL (12.2-16.2); Nucleated Red Blood Cells % 0.0 %
[2025-08-25 06:29] LABS: Hematocrit 30.7 % (36.0-46.0); Mean Corpuscular Hemoglobin 24.2 pg (28.0-32.0); Mean Corpuscular Volume 73.6 fL (80.0-100.0)
[2025-08-25 06:40] LABS: Alkaline Phosphatase 75 U/L (46-116); Anion Gap 10 (5-15); BUN/Creatinine Ratio 13.3 (10.0-20.0); Calcium 9.0 mg/dL (8.7-10.4); Carbon Dioxide 25 mmol/L (20-31); Glucose 88 mg/dL (74-106); Potassium 3.8 mmol/L (3.5-5.1); Sodium 143 mmol/L (136-145); Total Protein 6.5 g/dL (5.7-8.2)
[2025-08-25 06:41] LABS: Albumin 3.8 g/dL (3.2-4.8); Bilirubin, Total 0.4 mg/dL (0.2-1.0)
[2025-08-25 06:42] LABS: Alanine Aminotransferase < 9 U/L (7-40); Blood Urea Nitrogen 6 mg/dL (9-23); Chloride 108 mmol/L (98-107)
[2025-08-25 07:10] LABS: Ovalocytes FEW
[2025-08-25] MEDS: ONDANSETRON HCL 4 MG/2 ML VIAL IV PRN (07:39)
[2025-08-25 07:51] VITALS: PULSE 86; RESP 18; O2SAT 99
[2025-08-25] MEDS ORDERED: hydrALAZINE HCL 20 MG/ML VL IV PRN (08:00)
[2025-08-25] MEDS: FERROUS SULFATE 325mg EC TAB PO SCH (08:12)
[2025-08-25] MEDS: ALPRAZolam 0.25 MG TAB PO ONE (08:12)
[2025-08-25 08:39] VITALS: BP_SYST 138; BP_SYST 169; BP_DIAS 91; BP_DIAS 94; PULSE 68; PULSE 78; RESP 17; RESP 18; TEMP 96.8; TEMP 97.9; O2SAT 100; O2SAT 99
[2025-08-25 12:26] VITALS: BP 127/63; PULSE 71; RESP 16; TEMP 97.5; O2SAT 97
--- NOTE | 2025-08-25 12:58 | DVHDS2 ---
Discharge Summary Date of Admission Aug 24, 2025 at 08:28 Date of Discharge: Aug 25, 2025 Labs/Diagnostic Data: Laboratory Results Test 08/25/25 04:50 08/24/25 16:25 08/24/25 05:00 08/24/25 04:05 White Blood Count 4.2 10^3/uL (4.4-10.8) Red Blood Count 4.16 10^6/uL (4.0-5.20) Hemoglobin 10.1 g/dL (12.2-16.2) Hematocrit 30.7 % (36.0-46.0) Mean Corpuscular Volume 73.6 fL (80.0-100.0) Mean Corpuscular Hemoglobin 24.2 pg (28.0-32.0) Mean Corpuscular Hemoglobin Concent 32.9 g/dL (32.0-36.0) Red Cell Distribution Width 22.6 % (11.8-14.3) Platelet Count 277 10^3/uL (140-450) Mean Platelet Volume 8.7 fL (6.9-10.8) Neutrophils (%) (Auto) 67.3 % (37.0-80.0) Lymphocytes (%) (Auto) 21.6 % (10.0-50.0) Monocytes (%) (Auto) 7.3 % (0.0-12.0) Eosinophils (%) (Auto) 3.2 % (0.0-7.0) Basophils (%) (Auto) 0.6 % (0.0-2.0) Neutrophils # (Auto) 2.8 10 ^3/uL (1.6-8.6) Lymphocytes # (Auto) 0.9 10 ^3/uL (0.4-5.4) Monocytes # (Auto) 0.3 10 ^3/uL (0-1.3) Eosinophils # (Auto) 0.1 10 ^3/uL (0-0.8) Basophils # (Auto) 0 10 ^3/uL (0-0.2) Nucleated Red Blood Cells 0.0 % Platelet Estimate Adequate Hypochromasia (manual) Slight Microcytosis Moderate Ovalocytes Few Sodium Level 143 mmol/L (136-145) Potassium Level 3.8 mmol/L (3.5-5.1) Chloride Level 108 mmol/L (98-107) Carbon Dioxide Level 25 mmol/L (20-31) Anion Gap 10 (5-15) Blood Urea Nitrogen 6 mg/dL (9-23) Creatinine 0.45 mg/dL (0.550-1.02) Glomerular Filtration Rate Calc 103 mL/min (>90) BUN/Creatinine Ratio 13.3 (10.0-20.0) Serum Glucose 88 mg/dL (74-106) Calcium Level 9.0 mg/dL (8.7-10.4) Total Bilirubin 0.4 mg/dL (0.2-1.0) Aspartate Amino Transferase (AST) 14 U/L (13-40) Alanine Aminotransferase (ALT) < 9 U/L (7-40) Alkaline Phosphatase 75 U/L (46-116) Total Protein 6.5 g/dL (5.7-8.2) Albumin 3.8 g/dL (3.2-4.8) Stool Occult Blood Positive (Negative) Stool Occult Blood Sample #3 (Negative) Urine Color Yellow (Yellow) Urine Clarity Clear (Clear) Urine pH 5.5 (5.0-9.0) Urine Specific [place] 1.023 (1.001-1.035) Urine Protein Trace (Negative) Urine Ketones Negative (Negative) Urine Blood Negative /uL (Negative) Urine Nitrite Negative (Negative) Urine Bilirubin Negative (Negative) Urine Urobilinogen Normal mg/dL (Negative) Urine Leukocyte Esterase Trace /uL (Negative) Urine RBC 1 /hpf (0 - 4) Urine Microscopic WBC 7 /HPF (0-5) Urine Squamous Epithelial Cells Few /hpf (<5) Urine Bacteria None seen /hpf (None Seen) Urine Mucus Few (None Seen) Urine Glucose Normal mg/dL (Normal) POC Glucose 97 mg/dl (70-106) Test 08/24/25 01:47 Lactic Acid Level 0.7 mmol/L (0.4-2.0) Lipase 38 U/L (12-53) Other Laboratory Tests 08/25/25 04:50 Brief Hx & Hospital Course: Carmen Evans, is a 70-year-old female with past medical history of anemia, arthritis, anxiety, hypertension, thalassemia, and hyperlipidemia, who came to the hospital for abdominal pain. Patient was hospitalized here in 06/18/2025-06/22/2025 for severe anemia with a hemoglobin of 4.5. She had multiple blood transfusions and GI consult. She did not have an endoscopy completed. She came back today due to abdominal pain, bloating, constipation, and loss of appetite. She states this started about 3 days ago. She was able to eat, pain resolved Hb stable Condition at Discharge: Good Final Diagnosis/Problems List Gastroenteritis Discharge Disposition: Home Discharge Instruct/Medications Diet: Regular Activity: No Restrictions, As Tolerated Follow Up/Referral: PCP in 7 days Medications: same home medications Scheduled Ferrous Sulfate (Ferrous Sulfate), 1 TAB PO DAILY Meloxicam (Mobic), 7.5 MG PO BID Discontinued Medications Azithromycin (Zithromax Tablet), 250 MG PO DAILY Discharge Statement: "Patient was advised to return to the ER or call 911 if any headaches, dizziness, shortness of breath, chest pain, abdominal pain, bleeding, fevers, or worsening of medical condition. Patient was counseled about treatment plan, medications, possible side effects, patientverbalized understanding. All questions were answered to the best of my ability. This discharge took greater then 30 minutes in planning, reviewing documentation, counseling the patient, and discussing with other team members." ASSESSMENT ASSESSMENT Assessment Gastroenteritis Date of Service: Aug 25, 2025 Billing Provider: SAPPHIRE DICKEY MD Common Visit Codes: [id number] DISCH DAY >30min SAPPHIRE DICKEY MD Aug 25, 2025 12:57
[2025-08-25 13:17] VITALS: BP 115/58; PULSE 78; RESP 18; TEMP 36.4; O2SAT 100
[2025-08-25] MEDS ORDERED: LORA-1121 PO (13:21)
== END 2025-08-25 14:45 | disposition home or self-care (01) | DRG 392 ==
LOC: ER 00:01 → OVERFLOW 08:28 → WEST WING 10:04
PROVIDERS: ADMIT Hospitalist; ATTEND Hospitalist
DX: K52.9 Noninfective gastroenteritis and colitis, unspecified (principal); D56.9 Thalassemia, unspecified; I10 Essential (primary) hypertension; E78.5 Hyperlipidemia, unspecified; K29.00 Acute gastritis without bleeding; F41.9 Anxiety disorder, unspecified; Z82.49 Family history of ischemic heart disease and other diseases of the circulatory system; Z88.0 Allergy status to penicillin; Z88.5 Allergy status to narcotic agent
CPT/HCPCS: 36415; 74176; 80053; 81001; 82270; 82962; 83605; 83690; 85025; 96361; 96374; 96375; G0378; J2405; J2470; J3490